=== PATIENT | female | born 1955 | race Caucasian/White ===

== ENCOUNTER 2020-01-17 15:06 | Outpatient (REF) | payer BC, SELFPAY ==
--- NOTE | 2020-01-17 15:13 | XR_ITS ---
EXAMINATION: XR HIP, RIGHT CLINICAL INFORMATION: Right hip pain COMPARISON: None TECHNIQUE: AP pelvis. AP and frog-lateral views of the right hip. FINDINGS: Mild right hip osteoarthritis. Enthesopathy of the greater trochanter. No acute fracture or dislocation. No radiopaque foreign body. IMPRESSION: Mild degenerative findings with no fracture.
== END 2020-01-17 15:07 | disposition home or self-care (01) ==
LOC: HO.HMGCX 15:06
PROVIDERS: PCP Internal Medicine; Visit Provider Internal Medicine
DX: M25.551 Pain in right hip (principal)
CPT/HCPCS: 73502

== ENCOUNTER 2020-06-19 11:18 | Outpatient (REF) | payer BC, SELFPAY ==
[2020-06-20 09:20] LABS: BV Int Neg Control Negative (Negative); BV Int Pos Control Positive (Positive)
== END 2020-06-19 11:19 | disposition home or self-care (01) ==
LOC: HO.LAB 11:18
PROVIDERS: Visit Provider Nurse Practitioner Family
DX: B37.3 Candidiasis of vulva and vagina (principal)
CPT/HCPCS: 87480; 87510; 87660

== ENCOUNTER 2020-09-10 11:37 | Outpatient (REF) | payer MEDICARE, SELFPAY ==
[2020-09-10 14:10] LABS: MANUAL DIFF FLAG NO
[2020-09-10 14:17] LABS: Basophils Percent Auto 0.7 % (0-2); Eosinophils Absolute Auto 0.1 X10*3/uL (0.0-0.4); Eosinophils Percent Auto 1.5 % (0-4); Hemoglobin 14.6 g/dl (12.0-16.0); Imm Gran Abs Auto 0.02 X10*3/uL (0.00-0.03); Imm Gran Pct Auto 0.3 % (0.0-0.4); Lymphocytes Absolute Auto 2.1 X10*3/uL (1.2-4.9); Lymphocytes Percent Auto 36.3 % (20-40); Mean Corpuscular HGB Conc 32.4 g/dl (31.0-35.0); Mean Corpuscular Hemoglobin 29.4 pg (27.0-33.0); Mean Corpuscular Volume 90.7 fL (80-98); Mean Platelet Volume 10.3 fL (9.4-12.3); Monocytes Absolute Auto 0.4 X10*3/uL (0.1-1.2); Monocytes Percent Auto 6.1 % (2-11); Neutrophils Absolute Auto 3.2 X10*3/uL (2.0-8.3); Neutrophils Percent Auto 55.1 % (45-73); Platelet Count 195 X10*3/uL (160-400); Red Blood Count 4.96 X10*6/uL (4.20-5.50); Red Cell Distribution Width 13.2 % (11.0-16.0); White Blood Count 5.9 X10*3/uL (4.8-10.8)
[2020-09-10 14:47] LABS: Alanine Aminotransferase 19 U/L (0-31); Anion Gap 14 (12-20); Aspartate Amino Transferase 17 U/L (5-31); Blood Urea Nitrogen 15 mg/dL (9-16); Calcium 9.6 mg/dL (8.4-10.2); Carbon Dioxide 28 mmol/L (22-29); Chloride 104 mmol/L (96-108); Cholesterol 225 mg/dL; Estimated Glomerular Filt Rate > 60; Glucose Fasting 95 mg/dL (60-99); HDL Cholesterol 68 mg/dL; LDL Cholesterol Calculated 144 mg/dl; Potassium 4.3 mmol/L (3.3-5.1); Sodium 142 mmol/L (135-145); Triglycerides 69 mg/dL
[2020-09-10 15:09] LABS: TSH reflex Free T4 1.12 uIU/mL (0.32-4.0); Vitamin D 25-OH Total 40.7 ng/mL (>30)
== END 2020-09-10 11:38 | disposition home or self-care (01) ==
LOC: HO.HMGCLDS 11:37
PROVIDERS: PCP Internal Medicine; Visit Provider Internal Medicine
DX: Z00.01 Encounter for general adult medical examination with abnormal findings (principal); F32.9 Major depressive disorder, single episode, unspecified; I10 Essential (primary) hypertension; Z83.49 Family history of other endocrine, nutritional and metabolic diseases
CPT/HCPCS: 36415; 80048; 80061; 82306; 84443; 84450; 84460; 85025

== ENCOUNTER 2021-09-03 14:47 | Outpatient (REF) | payer MEDICARE, SELFPAY ==
[2021-09-05 01:21] LABS: Lyme Abs Screen <0.90 index
== END 2021-09-03 14:48 | disposition home or self-care (01) ==
LOC: HO.HMGCLDS 14:47
PROVIDERS: PCP Internal Medicine; Visit Provider Internal Medicine
DX: T14.8XXA Other injury of unspecified body region, initial encounter (principal); W57.XXXA Bitten or stung by nonvenomous insect and other nonvenomous arthropods, initial encounter
CPT/HCPCS: 36415; 86617; 86618

== ENCOUNTER 2021-10-23 09:24 | Outpatient (REF) | payer MEDICARE, SELFPAY ==
[2021-10-23 11:14] LABS: MANUAL DIFF FLAG NO
[2021-10-23 11:24] LABS: Basophils Percent Auto 0.8 % (0-2); Eosinophils Absolute Auto 0.1 X10*3/uL (0.0-0.4); Eosinophils Percent Auto 1.8 % (0-4); Hematocrit 43.2 % (37.0-47.0); Hemoglobin 14.4 g/dl (12.0-16.0); Imm Gran Abs Auto 0.02 X10*3/uL (0.00-0.03); Imm Gran Pct Auto 0.4 % (0.0-0.4); Lymphocytes Absolute Auto 1.5 X10*3/uL (1.2-4.9); Lymphocytes Percent Auto 29.1 % (20-40); Mean Corpuscular HGB Conc 33.3 g/dl (31.0-35.0); Mean Corpuscular Hemoglobin 29.8 pg (27.0-33.0); Mean Corpuscular Volume 89.3 fL (80.0-98.0); Mean Platelet Volume 10.5 fL (9.4-12.3); Monocytes Absolute Auto 0.4 X10*3/uL (0.1-1.2); Monocytes Percent Auto 7.7 % (2-11); Neutrophils Absolute Auto 3.1 x10*3/uL (2.0-8.3); Neutrophils Percent Auto 60.2 % (45-73); Platelet Count 214 X10*3/uL (160-400); Red Blood Count 4.84 X10*6/uL (4.20-5.50); Red Cell Distribution Width 12.9 % (11.0-16.0); White Blood Count 5.1 X10*3/uL (4.8-10.8)
[2021-10-23 11:49] LABS: Alanine Aminotransferase 32 U/L (0-31); Anion Gap 12 (12-20); Aspartate Amino Transferase 24 U/L (5-31); Blood Urea Nitrogen 11 mg/dL (9-16); Calcium 8.9 mg/dL (8.4-10.2); Carbon Dioxide 28 mmol/L (22-29); Chloride 105 mmol/L (96-108); Cholesterol 222 mg/dL; Estimated Glomerular Filt Rate > 60; Glucose Fasting 115 mg/dL (60-99); HDL Cholesterol 57 mg/dL; LDL Cholesterol Calculated 151 mg/dl; Potassium 3.9 mmol/L (3.3-5.1); Sodium 141 mmol/L (135-145); Triglycerides 71 mg/dL
[2021-10-23 12:12] LABS: Vitamin D 25-OH Total 35.1 ng/mL (>30)
== END 2021-10-23 09:25 | disposition home or self-care (01) ==
LOC: HO.HMGCLDS 09:24
PROVIDERS: PCP Internal Medicine; Visit Provider Internal Medicine
DX: Z00.01 Encounter for general adult medical examination with abnormal findings (principal); M19.041 Primary osteoarthritis, right hand; M19.042 Primary osteoarthritis, left hand; F32.9 Major depressive disorder, single episode, unspecified; Z78.0 Asymptomatic menopausal state
CPT/HCPCS: 36415; 80048; 80061; 82306; 84450; 84460; 85025

== ENCOUNTER → 2022-01-09 08:29 | Outpatient (BNVA) | payer MEDICARE, SELFPAY | PROVIDERS: PCP Internal Medicine; Referring Provider Internal Medicine; Visit Provider Internal Medicine Cardiovascular Disease | DX: R06.09 Other forms of dyspnea (principal); Z86.16 Personal history of COVID-19 | CPT/HCPCS: 93005; 99202 ==

== ENCOUNTER → 2022-03-04 13:04 | Outpatient (BNVA) | payer MEDICARE, SELFPAY | PROVIDERS: PCP Internal Medicine; Referring Provider Internal Medicine; Visit Provider Nurse Practitioner Family | DX: R06.09 Other forms of dyspnea (principal); E78.5 Hyperlipidemia, unspecified | CPT/HCPCS: 99212 ==

== ENCOUNTER → 2022-03-10 08:23 | Outpatient (REF) | payer MEDICARE, SELFPAY ==
--- NOTE | 2022-03-10 08:26 | CA_ITS ---
Acquisition Time: 2022-03-10 09:24:28 Total Exercise Time: 00:09:15 Test Indications: Dyspnea Medications: BUPROPION LORAZAPAM OMEPRAZOLE TROSPIUM Protocol: LORETO Max HR: 137 BPM 89% of Pred: 153 BPM Max BP: 164/084 mmHG Max Work Load: 10.5 METS Exercise stress test with exercise 9 min 15 sec of [place] protocol, acheiving up to 88% MPHR, with moderate sob and fatigue with request to stop, no chest discomfort, with isolated PACs, with normotensive response to exercise, without EKG changes meeting criteria for ischemia. In recovery her breathing quickly improved. Test reviewed with Dr Fernandez. Referred By: Mami Smith Overread By: MAMI SMITH
--- NOTE | 2022-03-10 08:26 | CA_ITS ---
Transthoracic Echocardiogram Patient (Last, First, Middle): Jimena Boyd J Gender: Female Date of : 1955 Age: 66 Procedure Date: 03/10/2022 Procedure Type: Transthoracic Echocardiogram Location: OP Height: 165.1 cm Weight: 86.18 kg BSA: 1.94 m2 Heart Rate: bpm BP: 148 / 92 mmHg Brassiere Cup Mold Cutter: FREDDY Referring MD: Mami Smith SKIRT PANEL ASSEMBLEREulalia Symptoms: R06.09 - Other forms of dyspnea Study Quality: Adequate ECG Rhythm: Sinus Conclusions: - The left ventricular systolic function is normal. The calculated ejection fraction is 61% by biplane method. - No obvious valvular pathology seen on this study. Findings Left Ventricle Normal left ventricular cavity size. There is mildly increased left ventricular wall thickness. The left ventricular systolic function is normal. The calculated ejection fraction is 61% by biplane method. There is no evidence of regional wall motion abnormalities. Diastolic function is normal for age. LV peak GLS -17.6%. Right Ventricle Normal right ventricular cavity size and systolic function. Atria Both atria are normal in size. Aortic Valve The aortic valve was not well visualized. There is no aortic valve stenosis. There is trace (trivial) aortic valve regurgitation. Mitral Valve There is mild anterior mitral leaflet thickening. There is trace mitral valve regurgitation. There is no mitral valve stenosis. Pulmonic Valve The pulmonic valve is likely normal. Tricuspid Valve There is trace tricuspid valve regurgitation. There is no evidence of pulmonary hypertension. Great Vessels The aortic arch is normal in size. Venous The inferior vena cava is normal in size and collapses greater than 50% with inspiration. Pericardium/Pleural There is no evidence of pericardial effusion. Prior Study Comparison No prior study available for comparison. Recommendations, Care & Conclusions No obvious valvular pathology seen on this study. Measurements 2D Linear Measurements IVSd: 1.19 0.6-0.9/0.6-1.0 cm LVIDd: 4.22 3.9-5.3/4.2-5.9 cm LVIDd Index: 2.18 2.4-3.2/2.2-3.1 cm/m2 LVIDs: 2.60 2.0-3.6 cm LVPWd: 1.17 0.7-1.1 cm LA Diam: 3.50 2.7-3.8/3.0-4.0 cm LAIDs Index: 1.80 1.5-2.3 cm/m2 LV Mass: 218.13 67-162/88-224 g LV Mass Index: 112.44 43-95/49-115 g/m2 LVOT Diam: 2.20 3.0+(-)1.3 cm 2D Systolic Function EF 4C: 59.20 >55% EF 2C: 65.60 >55% EF BiP: 61.10 >55% Mitral Valve MV Pk E: 0.76 MV PK A: 1.03 MV Decel Time: 248.00 E/A: 0.70 E'Lateral: 7.18 E'Medial: 5.22 E/E' Med: 14.50 E/E' Lat: 10.60 PHT: 73.00 MVA PHT: 3.01 Decel [place]: 3.06 Aortic Valve AoV Pk Andrea: 1.47 AoV Mn Andrea: 0.87 AoV VTI: 0.29 AoV Pk Grad: 9.00 Aov Mn Grad: 4.00 MARLENE Cont.VTI: 3.08 LVOT LVOT Pk Andrea: 1.11 LVOT Mn Andrea: 0.66 LVOT VTI: 0.24 LVOT Pk Grad: 5.00 LVOT Mn Grad: 2.00 LVOT Diam: 2.20 LVOT Area: 3.80 Diastolic Function MV Pk E: 0.76 MV Pk A: 1.03 E/A: 0.70 E'Medial: 5.22 E/E' Med: 14.50 E' Laterial: 7.18 E/E' Lat: 10.60 Right Ventricle TAPSE (mm): 24.80 TVS' Andrea: 11.70 Tricuspid Valve TR Pk Andrea: 2.12 TR Pk Grad: 18.00 RA Press: 3.00 RVSP: 21.00 Great Vessels Aorta Sinus of Valsalva: 3.24 2.0-3.[address] [place]: 2.74 1.7-3.4 cm Ao Asc: 3.20 2.1-3.4 cm Ao Arch: 3.10 Updated in Other Vendor System with Status of Final Rene Mchugh MD electronically signed on 03/10/2022 12:35:30 PM with status of Final
== END ==
LOC: HO.CARD 08:23
PROVIDERS: PCP Internal Medicine; Visit Provider Nurse Practitioner Family
DX: R06.09 Other forms of dyspnea (principal)
CPT/HCPCS: 93017; 93306; 93356

== ENCOUNTER 2023-03-08 13:55 | Outpatient (AMB) | payer MEDICARE, SELFPAY ==
[2023-03-08 14:46] VITALS: BP 162/92; PULSE 77; TEMP 36.4; O2SAT 98; BMI 33.6
--- NOTE | 2023-03-08 14:46 | MHC.OFFWIV ---
Intake Vital Signs 03/08/23 14:46 Height 5 ft 5 in Weight 202 lb BMI 33.6 BP 162/92 H Blood Pressure Location Rt brachial Position Sitting Pulse 77 Pulse Source Pulse Oximeter Temp 97.5 F Temp Source Temporal Artery Scan Pulse Oximetry (%) 98 Oxygen Delivery Method Room Air Intake Visit Reasons: EP ?Sinus Infection (masked) Intake Note: pt is here for c/o possible sinus infection Patient Tobacco Use Status: Former Tobacco user Allergies codeine [CODEINE] Allergy (Severe, Verified 03/08/23 14:46) DIFFICULTY BREATHING Do you need a note to return to daycare/school/sports/work: Yes HPI HPI Comments History of Present Illness Details The patient presents to urgent care for evaluation of URI type symptoms times 10-11 days. She reports facial pain and pressure with congestion in her right ear and in front of below the ear. Patient denies chest pain or shortness of breath. She does admit to having a cough as well. No fever. She has nasal drainage that is yellowish in color. Patient has been using [id number] remedies such as cold and flu preparations as well as Neti pot. She reports she has relief of the symptoms. [facility] Medical History Depression LIM (dyspnea on exertion) Dyslipidemia Hip pain, right Lumbago Osteoarthritis of fingers of both hands Plantar wart POP-Q stage 2 cystocele Tick bite of back Urge and stress incontinence Surgical History H/O colonoscopy H/O: Family History Father No problems noted. Mother Substance use disorder Mental health disorder Housing: House Alcohol intake: current Patient Tobacco Use Status: Former Tobacco user Years Smoked: 10 yrs e-Cigarette/Vaping Use: Never Used Second Hand Smoke Exposure: No service: No Current occupational status: retired Current occupational exposures/hazards: No Cognitive needs: No Hearing needs: No Vision needs: Yes (reading glasses) Review of Systems ENT Denies dizziness, Reports nasal congestion and Reports sore throat Card Denies rapid heart rate, Denies dyspnea and Denies dyspnea on exertion Resp Denies dyspnea and Denies dyspnea on exertion GI Denies dyspepsia and Denies heartburn Musc Denies arthralgias and Denies muscle cramps Neuro Denies dizziness, Denies focal weakness and Denies Other visual disturbances Physical Exam Vital Signs: Last Vital Signs Temp 97.5 F 03/08/23 14:46 Pulse 77 03/08/23 14:46 BP 162/92 H 03/08/23 14:46 Pulse Ox 98 03/08/23 14:46 Oxygen Delivery Method Room Air 03/08/23 14:46 BMI result Body Mass Index 33.6 Const General: healthy appearing and no acute distress HEENT Other: No significant facial tenderness or pressure over the eyebrows or maxillary sinuses Mouth: Normal oral and palatal mucosa present Resp Effort & Inspection: normal respiratory effort and able to speak in complete sentences Auscultation: clear to auscultation bilaterally Cardio Rate: regular rate Rhythm: regular rhythm Assessment & Plan Assessment & Plan (1) URI (upper respiratory infection): Code(s): J06.9 - Acute upper respiratory infection, unspecified Plan The patient presents to urgent care for evaluation of URI type symptoms lasting about 10-11 days. This is likely still viral. Discussed patient option of treating with antibiotic versus watch and wait. At this time given that symptoms may still very well be viral she would like to give it another few days to see if they improve over time without antibiotics. She will contact the office back in 2-3 days to speak with someone with Dr. Gonzalez his office for possible prescription of antibiotic. She may benefit from a course of azithromycin at that time. Coding Level of Care Code Est Pt Level 3 (59495) Diagnoses URI (upper respiratory infection) J06.9
== END 2023-03-08 15:08 | disposition home or self-care (01) ==
PROVIDERS: PCP Internal Medicine; Visit Provider Emergency Medicine
DX: J06.9 Acute upper respiratory infection, unspecified (principal)
CPT/HCPCS: 99213

== ENCOUNTER 2023-04-16 08:15 | Outpatient (REF) | payer MEDICARE, SELFPAY ==
[2023-04-16 12:29] LABS: Anion Gap 12 (12-20); Blood Urea Nitrogen 17 mg/dL (9-16); Calcium 9.1 mg/dL (8.4-10.2); Carbon Dioxide 27 mmol/L (22-29); Chloride 106 mmol/L (96-108); Cholesterol 234 mg/dL (<200); Estimated Glomerular Filt Rate > 60; Glucose Fasting 112 mg/dL (60-99); HDL Cholesterol 60 mg/dL (>40); LDL Cholesterol Calculated 153 mg/dL (<100); Potassium 4.1 mmol/L (3.3-5.1); Sodium 141 mmol/L (135-145); Triglycerides 105 mg/dL (<150)
[2023-04-16 12:32] LABS: Vitamin D 25-OH Total 45.5 ng/mL (>30)
== END 2023-04-16 08:16 | disposition home or self-care (01) ==
LOC: HO.HMGCLDS 08:15
PROVIDERS: PCP Internal Medicine; Visit Provider Internal Medicine
DX: E78.5 Hyperlipidemia, unspecified (principal); F32.9 Major depressive disorder, single episode, unspecified; M19.041 Primary osteoarthritis, right hand; M19.042 Primary osteoarthritis, left hand; R73.01 Impaired fasting glucose; E89.40 Asymptomatic postprocedural ovarian failure
CPT/HCPCS: 36415; 80048; 80061; 82306; 83036

== ENCOUNTER 2023-04-20 08:26 | Outpatient (AMB) | payer MEDICARE, SELFPAY ==
[2023-04-20 08:32] VITALS: BP 130/80; PULSE 82; O2SAT 97; BMI 33.5
--- NOTE | 2023-04-20 08:32 | A.OFFPC_ITS ---
Vital Signs 04/20/23 08:32 Height 5 ft 5 in Weight 201 lb 2 oz BMI 33.5 BP 130/80 Blood Pressure Location Rt brachial Position Sitting Pulse 82 Pulse Source Pulse Oximeter Pulse Oximetry (%) 97 Oxygen Delivery Method Room Air Intake Visit Reasons: Annual PE Intake Note: Pt is here for her Annual PE Allergies codeine [CODEINE] Allergy (Severe, Verified 04/20/23 09:04) DIFFICULTY BREATHING Medication List - Last Reconciled 04/20/23 by Stacie Gonzalez MD Bacillus coagulans (Digestive Advantage Probiotics-Prebiotic) cells PO cholecalciferol (vitamin D3) 25 mcg PO DAILY diclofenac sodium 1% 2 grams topical QID PRN estradiol 0.01%(0.1mg/gram) vaginal loratadine 10 mg PO DAILY lorazepam 0.5 mg PO DAILY PRN [id number] 1 tab PO DAILY omeprazole 20 mg PO DAILY tretinoin 0.025% appl topical vitamin B complex 1 tab PO DAILY Tobacco use date assessed: 04/20/23 Fall risk assessment: 2 + Falls in past year Last assessed Fall Risk: 04/20/23 Dental Screening Dental Screen Date: 04/20/23 Did you have a dental visit in the last 12 months?: Yes Did you have a dental problem in the last 6 months where you did not have access to dental care?: No Was dental information given to patient?: Patient has dentist HPI Annual PE HPI Details 67-year-old lady here today for her phys ical exam. She has impaired fasting glucose, history of bladder prolapse withurge and stress incontinence, vaginal atrophy, dyslipidemia, and osteoarthritis in fingers of both hands. She is up-to-date with her screening mammogram, due again next month, and had a normal bone density scan done in 2021. [facility] Medical History Impaired fasting glucose POP-Q stage 2 cystocele Dyslipidemia Lumbago Urge and stress incontinence LIM (dyspnea on exertion) Tick bite of back Osteoarthritis of fingers of both hands Depression Hip pain, right Plantar wart Surgical History H/O colonoscopy H/O: Family History Father No problems noted. Mother Substance use disorder Mental health disorder Social History Housing: House Alcohol intake: current Patient Tobacco Use Status: Former Tobacco user Years Smoked: 10 yrs e-Cigarette/Vaping Use: Never Used Second Hand Smoke Exposure: No service: No Current occupational status: retired Current occupational exposures/hazards: No Cognitive needs: No Hearing needs: No Vision needs: Yes (reading glasses) Questionnaire PHQ-9 Over the last 2 weeks, how often have you been bothered by any of the following problems? 1. Little interest or pleasure in doing things: several days 2. Feeling down, depressed, or hopeless: several days 3. Trouble falling or staying asleep, or sleeping too much: several days 4. Feeling tired or having little energy: several days 5. Poor appetite or overeating: nearly every day 6. Feeling bad about yourself - or that you are a failure or have let yourself or your family down: several days 7. Trouble concentrating on things, such as reading the newspaper or watching television: nearly every day 8. Moving or speaking so slowly that other people could have noticed. Or the opposite - being so fidgety or restless that you have been moving around a lot more than usual: not at all 9. Thoughts that you would be better off or of hurting yourself in some way: not at all Total score: 11 Depression Screening Interpretation: Positive Depression Screening Follow-up: Existing condition and In treatment Depression Screening Done: Yes 21999 - PHQ-9 Billing: Yes Source: Developed by Drs. Joshua Tovar, Demi Tariq, Bryant Ruvalcaba and colleagues, with an educational monico from [employer]. Thrive Questionnaire Date Thrive assessed: 04/20/23 I am a: Patient What is your living situation today?: I have a steady place to live Within the past 12 months, did the food you bought not last and you didn't have the money to get more?: Never true Within the past 12 months, did you worry whether your food would run out before you got money to buy more?: Never true Do you have trouble paying for medicines?: No Do you have trouble getting transportation to medical appointments?: No Do you have trouble paying your heating and electricity bill?: No Do you have trouble taking care of your child, family member or friend?: No Do you have trouble with day-to-day activities such as bathing, preparing meals, shopping, managing finances, etc.?: No Are you currently unemployed and looking for a job?: No Are you interested in more education?: No AUDIT C Alcohol Use Questionnaire (AUDIT-C) 1. How often do you have a drink containing alcohol?: 4 or more times a week 2. How many drinks containing alcohol do you have on a typical day when you are drinking?: 1 or 2 3. How often do you have six or more drinks on one occasion?: Never Total Score: 4 OPAL-7 AMB Questionnaire OPAL-7 Date OPAL - 7 assessed: 04/20/23 Feeling nervous, anxious, or on edge: 1 = Several days Not being able to stop or control worryin = Several days Worrying too much about different things: 1 = Several days Trouble relaxin = Several days Being so restless that it is hard to sit still: 1 = Several days Becoming easily annoyed or irritable: 1 = Several days Feeling afraid as if something awful might happen: 1 = Several days Total OPAL-7 score (0-4 normal; 5-9 mild; 10-14 moderate; 15-21 severe): 7 Source: Developed by Drs. Joshua Tovar, Demi Tariq, Bryant Ruvalcaba and colleagues, with an educational monico from [employer]. OPAL-7 Assessment Billing OPAL-7 Assessment Tool: OPAL-7 Assessment 86526 Review of Systems Const Denies body aches, Denies fatigue, Denies fever(s), Denies headache(s) and Denies weakness Eyes Denies change in vision, Denies eye discharge and Denies itchy eyes ENT Denies dizziness, Denies headache(s), Denies nasal congestion, Denies nasal discharge and Denies sore throat Card Denies chest pain, Denies lightheadedness and Denies palpitations Resp Denies chest congestion, Denies cough and Denies wheezing GI Denies abdominal pain, Denies change in bowel habits and Denies heartburn Denies hematuria and Denies dysuria Musc Reports no additional complaints Skin/Breast Denies breast pain, Denies breast mass, Denies lesions and Denies rash Neuro Denies dizziness, Denies headache(s) and Denies weakness Psych Reports as per HPI Endo Denies fatigue, Denies polydipsia, Denies polyuria and Denies palpitations Ashu/Lymph Denies easy bruising Aller/Immun Denies itchy eyes, Denies seasonal rhinorrhea and Denies wheezing Physical exam (Primary Care) Vital Signs: Last Vital Signs Pulse 82 04/20/23 08:32 BP 130/80 04/20/23 08:32 Pulse Ox 97 04/20/23 08:32 Oxygen Delivery Method Room Air 04/20/23 08:32 BMI result Body Mass Index 33.5 Tobacco/Smoking Status: Tobacco use Status Tobacco use date assessed 04/20/23 04/20/23 08:43 Patient Tobacco Use Status Former Tobacco user 04/20/23 08:32 e-Cigarette/Vaping Use Never Used 04/20/23 08:32 PHQ-9: PHQ-9 Score PHQ-9: Total score 11 04/20/23 09:53 Depression Screening Interpretation: Positive Depression Screening Follow-up: Existing condition and In treatment Thrive Assessment: Date of Thrive Assessment Date Thrive assessed 04/20/23 04/20/23 08:48 Const General: comfortable, no acute distress and alert Orientation/consciousness: patient oriented x3 Limitations: no limitations HENMT Ears: external ears normal, TM's normal bilaterally and EAC's normal General nose exam: Normal external nose present and No nasal discharge present Mouth: Normal oral and palatal mucosa present, oropharynx normal and moist mucous membranes Eyes General: appearance normal, both eyes and all related structures Neck Neck: Yes full ROM, Yes no lymphadenopathy and Yes supple Resp Effort & Inspection: normal respiratory effort and able to speak in complete sentences Auscultation: clear to auscultation bilaterally Cardio Rate: regular rate Rhythm: regular rhythm Heart sounds: S1 normal heart sound present and S2 normal heart sound present GI Palpation (GI): Soft to palpation, nontender and no masses Auscultation: normal bowel sounds Back/Spine/Pelvis Back: No back tenderness Skin General skin exam: no rashes or lesions noted Neuro General: patient oriented x3, gait normal, tone normal, moves all extremities, Normal light touch and pain sensation and no focal motor deficits Cranial nerves: Yes CN's II-XII intact bilaterally Cognition (Neuro): normal cognition Extrem General: Yes full ROM, Yes no joint enlargement, Yes no clubbing, cyanosis or edema and Yes no calf tenderness Psych Appearance: grossly normal and well kempt Mental Status: mental status grossly normal Speech and movement: Normal speech and movement present Affect: normal affect Attitude: cooperative Thought process: Normal thought process present Thought content: Normal thought content present Results Reviewed Results Reviewed: Laboratory Tests 04/16/23 08:20 Estimat Average Glucose 120 Hemoglobin A1c % 5.8 ENTERED: 04/16/[address]: ORDERED: Met Prof Fast, Lipid Panel, Vitamin D 25-OH Test Result Flag Reference Site Sodium 141 135-145 mmol/L Potassium 4.1 3.3-5.1 mmol/L CL 106 96-108 mmol/L CO2 27 22-29 mmol/L Gap 12 12-20 BUN 17 H 9-16 mg/dL Creat 0.77 0.5-1.4 mg/dL EGFR > 60 NOTE: For -Citizen Of [place] individuals, multiply the result by 1.210. Chronic Kidney Disease: Estimated GFR < 60 mL/min/1.73m2 Severe Kidney Disease: Estimated GFR < 15 mL/min/1.73m2 FBS 112 H 60-99 mg/dL A fasting glucose from 100-125 mg/dl is considered impaired (pre-diabetes). CA 9.1 8.4-10.2 mg/dL Triglyceride 105 <150 mg/dL Desirable Triglyceride: less than 150 mg/dL Borderline High Triglyceride 150-199 mg/dL High Triglyceride: 200-499 mg/dL Very High Triglyceride: greater than or equal to 5OO mg/dL Cholesterol 234 H <200 mg/dL Desirable Cholesterol: less than 200 mg/dL Borderline High Cholesterol: 200-239 mg/dL High Cholesterol: greater than 239 mg/dL LDL Calculated 153 H <100 mg/dL Desirable LDL: less than 100 mg/dL Near Optimal/Above Optimal LDL: 110-129 mg/dL Borderline High LDL: 130-159 mg/dL High LDL: 160-189 mg/dL Very High LDL: greater than or equal to 190 mg/dL HDL 60 >40 mg/dL Desirable HDL: greater than 40 mg/dL Note: This HDL assay may give artificially low results in patients with liver disease. Vit D 25-OH Tot 45.5 >30 ng/mL Health Based Reference Values* < 20 ng/mL Deficient 20-30 ng/mL Insufficient > 30 ng/mL Sufficient Assessment and Plan Assessment & Plan (1) Annual visit for general adult medical examination with abnormal findings: Code(s): Z00.01 - Encounter for general adult medical examination with abnormal findings Plan: Reviewed recent fasting lab results with patient.. Continue with regular dental visit every 6 months and regular eye exams, at least every 2 years. Take adequate calcium in diet and vitamin-D 3 at 2000 IU per cap once a day, in addition to weight-bearing exercises to help maintain good muscle tone and weight control. Instructed to do self-breast exam, and continue with yearly mammogram, up-to-date with bone density scan, last done 2021 with normal findings. She is up-to-date with her screening colonoscopy [place] [address] Olguin, repeat again in 2026. Up-to-date with all her vaccinations however she has not yet had her shingles vaccine which is recommended (2) Impaired fasting glucose: Code(s): R73.01 - Impaired fasting glucose Plan: Your fasting blood sugars elevated were above 100 mg/dL latest hemoglobin A1c is at 5.8%. Impaired glucose metabolism O2 at risk for developing diabetes mellitus type 2, as well as heart attack and stroke later on. Lifestyle changes at just weight loss, healthy eating habits, and regular exercise are important, and can prevent the progression to diabetes (3) Depression: Code(s): F32.9 - Major depressive disorder, single episode, unspecified Qualifiers: Depression Type: major depressive disorder Major depression recurrence: recurrent Active/Remission status: currently active Plan: Will start on bupropion at 150 mg/dL, to take it in the morning. Declined referral for counseling. Will see her back for follow-up in a month. (4) POP-Q stage 2 cystocele: Comment: followed byb urology . for pessary fitting Code(s): N81.10 - Cystocele, unspecified Plan: Currently followed by Urology (5) Dyslipidemia: Code(s): E78.5 - Hyperlipidemia, unspecified Plan: Reviewed recent fasting lipid profile with patient with elevated triglycerides and LDL cholesterol. Reason for adherence to low-cholesterol diet and regular exercise, at least 30 minutes 3 to 4 times a week. Advised patient to make healthy food choices, eat more fruits, vegetables, whole grains, wild caught fish and low-fat dairy. Limit amount of meat and fried or fatty food products, as well as processed foods and fast foods. (6) Osteoarthritis of fingers of both hands: Code(s): M19.041 - Primary osteoarthritis, right hand; M19.042 - Primary osteoarthritis, left hand Plan: Massage diclofenac sodium to affected joints up to 4 times a day as needed. Advised to continue staying active, have regular exercise Medications: New estradiol 0.01%(0.1mg/gram) vaginal bupropion HCl 150 mg PO QAM 30 tabs 1RF Refilled omeprazole 20 mg PO DAILY 90 caps 1RF Coding Level of Care Code Est Pt Prev Care >65y(68523) Diagnoses Annual visit for general adult medical examination with abnormal findings Z00.01 Impaired fasting glucose R73.01 Depression F32.9 Depression Type: major depressive disorder Major depression recurrence: recurrent Active/Remission status: currently active POP-Q stage 2 cystocele N81.10 Dyslipidemia E78.5 Osteoarthritis of fingers of both hands M19.041; M19.042 Additional Codes OPAL-7 Assessment Billing - OPAL-7 Assessment Tool: OPAL-7 Assessment [id number] ([id number])
== END 2023-04-20 09:54 | disposition home or self-care (01) ==
PROVIDERS: PCP Internal Medicine; Visit Provider Internal Medicine
DX: Z00.00 Encounter for general adult medical examination without abnormal findings (principal); R73.01 Impaired fasting glucose; F32.9 Major depressive disorder, single episode, unspecified; N81.10 Cystocele, unspecified; E78.5 Hyperlipidemia, unspecified; M19.041 Primary osteoarthritis, right hand; M19.042 Primary osteoarthritis, left hand
CPT/HCPCS: 96127; 99397

== ENCOUNTER 2023-05-18 14:04 | Outpatient (AMB) | payer MEDICARE, SELFPAY ==
--- NOTE | 2023-05-18 14:01 | MHC.PC.OV ---
Vital Signs 05/18/23 14:01 Height 5 ft 5 in Intake Visit Reasons: 4 week follow up Intake Note: Pt is having a telehealth visit for her 4 weeks f/u Allergies codeine [CODEINE] Allergy (Severe, Verified 05/19/23 05:38) DIFFICULTY BREATHING Medication List - Last Reconciled 05/19/23 by Stacie Gonzalez MD Bacillus coagulans (Digestive Advantage Probiotics-Prebiotic) cells PO bupropion HCl 150 mg PO QAM cholecalciferol (vitamin D3) 25 mcg PO DAILY diclofenac sodium 1% 2 grams topical QID PRN estradiol 0.01%(0.1mg/gram) vaginal loratadine 10 mg PO DAILY lorazepam 0.5 mg PO DAILY PRN magnesium oxide 400 mg PO DAILY [id number]-zmfziwnr-khqtrb 1 tab PO DAILY omeprazole 20 mg PO DAILY tretinoin 0.025% appl topical turmeric root extract 500 mg PO DAILY vitamin B complex 1 tab PO DAILY Tobacco use date assessed: 05/18/23 Fall risk assessment: No Falls in past year Last assessed Fall Risk: 05/18/23 Dental Screening Dental Screen Date: 05/18/23 Did you have a dental visit in the last 12 months?: Yes Did you have a dental problem in the last 6 months where you did not have access to dental care?: No Was dental information given to patient?: Patient has dentist HPI 4 week follow up HPI Details 68-year-old lady here today for follow-up. She was started on bupropion 150 mg extended release taken once a day in the morning, for treatment of depression and to help with weight loss, 4 weeks ago. She states that it has been helping with controlling her depression, but she has started noticing presence of tinnitus on and off again since she started taking the medication. She states that it has been tolerable, not bothering her during the day but is present more during the night. She would have music playing in the background, and this would usually suppress it. Otherwise has not had any adverse effects with taking the medication. She also has noticed that it does suppress her appetite, has lost 2 lb since she started taking it, but would like to lose more. Has been exercising regularly. [facility] Medical History (Updated 05/19/23 @ 05:45 by Stacie Gonzalez MD) Tinnitus Impaired fasting glucose POP-Q stage 2 cystocele Dyslipidemia Lumbago Urge and stress incontinence LIM (dyspnea on exertion) Tick bite of back Osteoarthritis of fingers of both hands Depression Hip pain, right Plantar wart Surgical History H/O colonoscopy H/O: Family History Father No problems noted. Mother Substance use disorder Mental health disorder Social History Housing: House Alcohol intake: current Patient Tobacco Use Status: Former Tobacco user Years Smoked: 10 yrs e-Cigarette/Vaping Use: Never Used Second Hand Smoke Exposure: No service: No Current occupational status: retired Current occupational exposures/hazards: No Cognitive needs: No Hearing needs: No Vision needs: Yes (reading glasses) Questionnaire Thrive Questionnaire Date Thrive assessed: 04/20/23 AUDIT C Alcohol Use Questionnaire (AUDIT-C) 1. How often do you have a drink containing alcohol?: 4 or more times a week 2. How many drinks containing alcohol do you have on a typical day when you are drinking?: 1 or 2 3. How often do you have six or more drinks on one occasion?: Never Total Score: 4 Score Reviewed/Action Taken: Yes OPAL-7 AMB Questionnaire OPAL-7 Date OPAL - 7 assessed: 04/20/23 Source: Developed by Drs. Joshua Tovar, Demi Tariq, Bryant Ruvalcaba and colleagues, with an educational monico from [employer]. Review of Systems Const Denies fatigue and Denies headache(s) ENT Denies dizziness, Denies headache(s), Denies nasal congestion and Denies nasal discharge Card Denies chest pain, Denies lightheadedness and Denies palpitations Resp Denies chest congestion, Denies cough and Denies wheezing GI Denies abdominal pain, Denies change in bowel habits and Denies heartburn Musc Reports no additional complaints Neuro Denies dizziness and Denies headache(s) Psych Reports as per HPI Endo Denies fatigue, Denies polydipsia, Denies polyuria and Denies palpitations Aller/Immun Denies seasonal rhinorrhea and Denies wheezing Physical exam (Primary Care) Tobacco/Smoking Status: Tobacco use Status Tobacco use date assessed 05/18/23 05/18/23 14:03 Patient Tobacco Use Status Former Tobacco user 05/18/23 14:03 e-Cigarette/Vaping Use Never Used 05/18/23 14:03 Thrive Assessment: Date of Thrive Assessment Date Thrive assessed 04/20/23 05/18/23 14:03 Telehealth Telehealth Location of provider rendering services: practice address Location of patient: address on file Patient Identification confirmed using: Name, : Yes Telehealth method: video Patient verbally consented to treatment: Yes Patient verbally consented to billing insurance company: Yes Patient informed of any privacy concerns related to visit: Yes Minutes spent on Phone/Video with Pt.: 15 Assessment and Plan Assessment & Plan (1) Depression: Code(s): F32.9 - Major depressive disorder, single episode, unspecified Qualifiers: Active/Remission status: in partial remission Depression Type: major depressive disorder Major depression recurrence: recurrent Qualified Code(s): F33.41 - Major depressive disorder, recurrent, in partial remission Plan: Continue with bupropion HCL 150 mg tab taken once daily in a.m.. Takes lorazepam as needed (2) Tinnitus: Code(s): H93.19 - Tinnitus, unspecified ear Plan: Intermittent, patient states it is tolerable, usually would have music playing in the background which helps mask it Coding Level of Care Code Tele Est Pt Level 3 (88847) Diagnoses Recurrent major depressive disorder, in partial remission F33.41 Active/Remission status: in partial remission Depression Type: major depressive disorder Major depression recurrence: recurrent Tinnitus H93.19
== END 2023-05-18 15:37 | disposition home or self-care (01) ==
LOC: HO.HMGC 14:04
PROVIDERS: PCP Internal Medicine; Visit Provider Internal Medicine
DX: F33.41 Major depressive disorder, recurrent, in partial remission (principal); H93.13 Tinnitus, bilateral
CPT/HCPCS: 99213

== ENCOUNTER 2023-08-30 13:12 | Outpatient (AMB) | payer MEDICARE, SELFPAY ==
--- NOTE | 2023-08-30 13:16 | A.OFFPC_ITS ---
Vital Signs 08/30/23 13:19 Height 5 ft 5 in Weight 184 lb 2 oz BMI 30.6 BP 138/86 Blood Pressure Location Lt brachial Position Sitting Pulse 81 Pulse Source Pulse Oximeter Pulse Oximetry (%) 97 Oxygen Delivery Method Room Air Intake Visit Reasons: Follow up depression and weight Intake Note: Pt is here today to follow up on depression and weight. Allergies codeine [CODEINE] Allergy (Severe, Verified 08/30/23 13:33) DIFFICULTY BREATHING Medication List - Last Reconciled 08/30/23 by Stacie Gonzalez MD Bacillus coagulans (Digestive Advantage Probiotics-Prebiotic) cells PO bupropion HCl XL 150 mg PO QAM cholecalciferol (vitamin D3) 25 mcg PO DAILY diclofenac sodium 1% 2 grams topical QID PRN estradiol 0.01%(0.1mg/gram) vaginal loratadine 10 mg PO DAILY lorazepam 0.5 mg PO DAILY PRN magnesium oxide 400 mg PO DAILY npwvzfdfujvd-zajcycrx-kkjqgn 1 tab PO DAILY omeprazole 20 mg PO DAILY tretinoin 0.025% appl topical turmeric root extract 500 mg PO DAILY vitamin B complex 1 tab PO DAILY Tobacco use date assessed: 05/18/23 Fall risk assessment: No Falls in past year Last assessed Fall Risk: 08/30/23 Dental Screening Dental Screen Date: 08/30/23 Did you have a dental visit in the last 12 months?: Yes Did you have a dental problem in the last 6 months where you did not have access to dental care?: No Was dental information given to patient?: Patient has dentist HPI Follow up depression and weight HPI Details 68-year-old lady with history of hyperli pidemia and impaired fasting glucose, here today for follow-up on her depression, which is currently stable and controlled on current dose of bupropion HCL 150 mg taken once a day in a.m., and has lorazepam to take as needed for acute anxiety attacks. [facility] Medical History (Updated 09/06/23 @ 18:13 by Stacie Gonzalez MD) Tinnitus Impaired fasting glucose POP-Q stage 2 cystocele Dyslipidemia Lumbago Tick bite of back Osteoarthritis of fingers of both hands Depression Plantar wart Surgical History H/O colonoscopy H/O: Family History Father No problems noted. Mother Substance use disorder Mental health disorder Social History Housing: House Alcohol intake: current Patient Tobacco Use Status: Former Tobacco user Years Smoked: 10 yrs e-Cigarette/Vaping Use: Never Used Second Hand Smoke Exposure: No service: No Current occupational status: retired Current occupational exposures/hazards: No Cognitive needs: No Hearing needs: No Vision needs: Yes (reading glasses) Questionnaire PHQ-9 Over the last 2 weeks, how often have you been bothered by any of the following problems? 1. Little interest or pleasure in doing things: several days 2. Feeling down, depressed, or hopeless: not at all 3. Trouble falling or staying asleep, or sleeping too much: not at all 4. Feeling tired or having little energy: not at all 5. Poor appetite or overeating: more than half the days 6. Feeling bad about yourself - or that you are a failure or have let yourself or your family down: not at all 7. Trouble concentrating on things, such as reading the newspaper or watching television: several days 8. Moving or speaking so slowly that other people could have noticed. Or the opposite - being so fidgety or restless that you have been moving around a lot more than usual: not at all 9. Thoughts that you would be better off or of hurting yourself in some way: not at all Total score: 4 Depression Screening Interpretation: Positive Depression Screening Follow-up: Existing condition, In treatment and Community Mental Health Worker F/U Depression Screening Done: Yes 98673 - PHQ-9 Billing: Yes Source: Developed by Drs. Joshua Tovar, Demi Tariq, Bryant Ruvalcaba and colleagues, with an educational monico from [email or web address]. Thrive Questionnaire Date Thrive assessed: 08/30/23 I am a: Patient What is your living situation today?: I have a steady place to live Within the past 12 months, did the food you bought not last and you didn't have the money to get more?: Never true Within the past 12 months, did you worry whether your food would run out before you got money to buy more?: Never true Do you have trouble paying for medicines?: No Do you have trouble getting transportation to medical appointments?: No Do you have trouble paying your heating and electricity bill?: No Do you have trouble taking care of your child, family member or friend?: No Do you have trouble with day-to-day activities such as bathing, preparing meals, shopping, managing finances, etc.?: No Are you currently unemployed and looking for a job?: No Are you interested in more education?: No THRIVE Score: 0 AUDIT C Alcohol Use Questionnaire (AUDIT-C) 1. How often do you have a drink containing alcohol?: 4 or more times a week 2. How many drinks containing alcohol do you have on a typical day when you are drinking?: 1 or 2 3. How often do you have six or more drinks on one occasion?: Never Total Score: 4 Score Reviewed/Action Taken: Yes OPAL-7 AMB Questionnaire OPAL-7 Date OPAL - 7 assessed: 08/30/23 Feeling nervous, anxious, or on edge: 1 = Several days Not being able to stop or control worryin = Several days Worrying too much about different things: 0 = Not at all Trouble relaxin = Not at all Being so restless that it is hard to sit still: 0 = Not at all Becoming easily annoyed or irritable: 0 = Not at all Feeling afraid as if something awful might happen: 1 = Several days Total OPAL-7 score (0-4 normal; 5-9 mild; 10-14 moderate; 15-21 severe): 3 Source: Developed by Drs. Joshua Tovar, Demi Tariq, Bryant Ruvalcaba and colleagues, with an educational monico from [email or web address]. OPAL-7 Assessment Billing OPAL-7 Assessment Tool: OPAL-7 Assessment 00624 Review of Systems Const Denies fatigue and Denies headache(s) ENT Denies dizziness, Denies headache(s), Denies nasal congestion and Denies nasal discharge Card Denies chest pain, Denies lightheadedness and Denies palpitations Resp Denies chest congestion, Denies cough and Denies wheezing GI Denies abdominal pain, Denies change in bowel habits and Denies heartburn Musc Reports no additional complaints Neuro Denies dizziness and Denies headache(s) Psych Reports as per HPI Endo Denies fatigue, Denies polydipsia, Denies polyuria and Denies palpitations Aller/Immun Denies seasonal rhinorrhea and Denies wheezing Physical exam (Primary Care) Vital Signs: Last Vital Signs Pulse 81 08/30/23 13:19 BP 138/86 08/30/23 13:19 Pulse Ox 97 08/30/23 13:19 Oxygen Delivery Method Room Air 08/30/23 13:19 BMI result Body Mass Index 30.6 Tobacco/Smoking Status: Tobacco use Status Tobacco use date assessed 05/18/23 08/30/23 13:16 Patient Tobacco Use Status Former Tobacco user 08/30/23 13:16 e-Cigarette/Vaping Use Never Used 08/30/23 13:16 PHQ-9: PHQ-9 Score PHQ-9: Total score 4 08/30/23 15:22 Depression Screening Interpretation: Positive Depression Screening Follow-up: Existing condition, In treatment and Community Mental Health Worker F/U Thrive Assessment: Date of Thrive Assessment Date Thrive assessed 08/30/23 08/30/23 15:22 Const General: comfortable, no acute distress and alert Orientation/consciousness: patient oriented x3 Limitations: no limitations HENMT Ears: external ears normal, TM's normal bilaterally and EAC's normal General nose exam: Normal external nose present and No nasal discharge present Mouth: Normal oral and palatal mucosa present, oropharynx normal and moist mucous membranes Eyes General: appearance normal, both eyes and all related structures Neck Neck: Yes full ROM, Yes no lymphadenopathy and Yes supple Resp Effort & Inspection: normal respiratory effort and able to speak in complete sentences Auscultation: clear to auscultation bilaterally Cardio Rate: regular rate Rhythm: regular rhythm Heart sounds: S1 normal heart sound present and S2 normal heart sound present GI Palpation (GI): Soft to palpation, nontender and no masses Auscultation: normal bowel sounds Neuro General: patient oriented x3, gait normal, tone normal, moves all extremities, Normal light touch and pain sensation and no focal motor deficits Cranial nerves: Yes CN's II-XII intact bilaterally Cognition (Neuro): normal cognition Extrem General: Yes full ROM, Yes no joint enlargement, Yes no clubbing, cyanosis or edema and Yes no calf tenderness Psych Appearance: grossly normal and well kempt Mental Status: mental status grossly normal Speech and movement: Normal speech and movement present Affect: normal affect Attitude: cooperative Thought process: Normal thought process present Assessment and Plan Assessment & Plan (1) Depression: Code(s): F32.9 - Major depressive disorder, single episode, unspecified Qualifiers: Active/Remission status: in partial remission Depression Type: major depressive disorder Major depression recurrence: recurrent Qualified Code(s): F33.41 - Major depressive disorder, recurrent, in partial remission Plan: Stable and controlled on current dose of bupropion XL 150 mg daily taken in the morning and has lorazepam taken only as needed for acute anxiety attacks. (2) Dyslipidemia: Code(s): E78.5 - Hyperlipidemia, unspecified Plan: Fasting lipid panel ordered, reinforced importance of following a low- cholesterol diet and getting regular exercise. (3) Impaired fasting glucose: Code(s): R73.01 - Impaired fasting glucose Plan: Fasting blood sugar level ordered. Your fasting blood sugar in the past elevated above 100 mg/dL. Impaired glucose metabolism O2 increases the risk for developing diabetes mellitus type 2, as well as heart attack and stroke later on. Lifestyle changes at just weight loss, healthy eating habits, and regular exercise are important, and can prevent the progression to diabetes Orders: Orders Vitamin D 25-OH Total 08/31/23 E78.5 - Hyperlipidemia, unspecified, F33.41 - Major depressive disorder, recurrent, in partial remission, R73.01 - Impaired fasting glucose, Z78.0 - Asymptomatic menopausal state Vitamin B12 and Folate 08/31/23 E78.5 - Hyperlipidemia, unspecified, F33.41 - Major depressive disorder, recurrent, in partial remission, R73.01 - Impaired fasting glucose, Z78.0 - Asymptomatic menopausal state Aspartate Amino Transferase 08/31/23 E78.5 - Hyperlipidemia, unspecified, F33.41 - Major depressive disorder, recurrent, in partial remission, R73.01 - Impaired fasting glucose, Z78.0 - Asymptomatic menopausal state Glucose Fasting 08/31/23 E78.5 - Hyperlipidemia, unspecified, F33.41 - Major depressive disorder, recurrent, in partial remission, R73.01 - Impaired fasting glucose, Z78.0 - Asymptomatic menopausal state Lipid Panel 08/31/23 E78.5 - Hyperlipidemia, unspecified, F33.41 - Major depressive disorder, recurrent, in partial remission, R73.01 - Impaired fasting glucose, Z78.0 - Asymptomatic menopausal state Alanine Aminotransferase 08/31/23 E78.5 - Hyperlipidemia, unspecified, F33.41 - Major depressive disorder, recurrent, in partial remission, R73.01 - Impaired fasting glucose, Z78.0 - Asymptomatic menopausal state Coding Level of Care Code Est Pt Level 4 (19874) Diagnoses Recurrent major depressive disorder, in partial remission F33.41 Active/Remission status: in partial remission Depression Type: major depressive disorder Major depression recurrence: recurrent Dyslipidemia E78.5 Impaired fasting glucose R73.01 Additional Codes OPAL-7 Assessment Billing - OPAL-7 Assessment Tool: OPAL-7 Assessment [id number] ([id number])
[2023-08-30 13:19] VITALS: BP 138/86; PULSE 81; O2SAT 97; BMI 30.6
== END 2023-08-30 15:10 | disposition home or self-care (01) ==
PROVIDERS: PCP Internal Medicine; Visit Provider Internal Medicine
DX: E78.5 Hyperlipidemia, unspecified (principal); F33.41 Major depressive disorder, recurrent, in partial remission; R73.01 Impaired fasting glucose
CPT/HCPCS: 99214

== ENCOUNTER 2023-08-31 08:01 | Outpatient (REF) | payer MEDICARE, SELFPAY ==
[2023-08-31 10:39] LABS: Alanine Aminotransferase 24 U/L (0-31); Aspartate Amino Transferase 19 U/L (5-31); Cholesterol 186 mg/dL (<200); Glucose Fasting 113 mg/dL (60-99); HDL Cholesterol 57 mg/dL (>40); LDL Cholesterol Calculated 116 mg/dL (<100); Triglycerides 65 mg/dL (<150)
[2023-08-31 10:53] LABS: Vitamin D 25-OH Total 52.9 ng/mL (>30)
[2023-08-31 11:34] LABS: Folate 14.3 ng/mL (> or = 4.0); Vitamin B12 404 pg/mL (200-900)
== END 2023-08-31 08:02 | disposition home or self-care (01) ==
LOC: HO.HMGCLDS 08:01
PROVIDERS: PCP Internal Medicine; Visit Provider Internal Medicine
DX: R73.01 Impaired fasting glucose (principal); E78.5 Hyperlipidemia, unspecified; F33.41 Major depressive disorder, recurrent, in partial remission; Z78.0 Asymptomatic menopausal state
CPT/HCPCS: 36415; 80061; 82306; 82607; 82746; 82947; 84450; 84460

== ENCOUNTER 2023-09-27 12:11 | Outpatient (AMB) | payer MEDICARE, SELFPAY ==
[2023-09-27 12:22] VITALS: BP 136/88; PULSE 81; TEMP 36.6; O2SAT 95; BMI 31.6
--- NOTE | 2023-09-27 12:22 | AM.OFFWIN_ITS ---
Intake Vital Signs 09/27/23 12:22 Height 5 ft 5 in Weight 190 lb BMI 31.6 BP 136/88 Blood Pressure Location Lt brachial Position Sitting Pulse 81 Pulse Source Pulse Oximeter Temp 97.9 F Temp Source Temporal Artery Scan Pulse Oximetry (%) 95 Oxygen Delivery Method Room Air Intake Visit Reasons: EP Rt Knee pain Intake Note: pt is here today for rt knee pain started 2 weeks ago Patient Tobacco Use Status: Former Tobacco user Allergies codeine [CODEINE] Allergy (Severe, Verified 09/27/23 12:35) DIFFICULTY BREATHING Do you need a note to return to daycare/school/sports/work: No HPI HPI Comments History of Present Illness Details Patient presents to the walk-in today for right knee pain x2 weeks Denies injury, trauma, fall Pain is worse with walking Has been icing and elevating without improvement. Wearing compression support but pain persists PFS Medical History (Updated 09/27/23 @ 13:01 by Bridget Miller ULTRASOUND TECHNOLOGIST SONOGRAPHER, ELECTRONIC WARFARE SPECIALIST) Tinnitus Impaired fasting glucose POP-Q stage 2 cystocele Dyslipidemia Lumbago Tick bite of back Osteoarthritis of fingers of both hands Depression Plantar wart Surgical History H/O colonoscopy H/O: Family History Father No problems noted. Mother Substance use disorder Mental health disorder Social History Housing: House Alcohol intake: current Patient Tobacco Use Status: Former Tobacco user Years Smoked: 10 yrs e-Cigarette/Vaping Use: Never Used Second Hand Smoke Exposure: No service: No Current occupational status: retired Current occupational exposures/hazards: No Cognitive needs: No Hearing needs: No Vision needs: Yes (reading glasses) Review of Systems Const All systems reviewed & are unremarkable except as noted in HPI and below Physical Exam Vital Signs: Last Vital Signs Temp 97.9 F 09/27/23 12:22 Pulse 81 09/27/23 12:22 BP 136/88 09/27/23 12:22 Pulse Ox 95 09/27/23 12:22 Oxygen Delivery Method Room Air 09/27/23 12:22 BMI result Body Mass Index 31.6 General: awake, alert, oriented. Answers questions appropriately. Fully engaged in examination. Skin: warm, dry, intact HEENT: Normocephalic. Hearing intact. Cardiac: External chest normal in appearance. Respiratory: No cough, audible wheezing or stridor. Abdomen: without gross distension. MS: Right knee: Tenderness long lateral and medial joint line. Positive crepitus. Decreased range of motion. Neurological: Oriented to person, place, time and situation. Thought process intact. No gait abnormalities appreciated. Psychiatric: Appropriate mood and affect. Good judgment and insight. Results Reviewed Results Reviewed: X-ray right knee ordered and independently reviewed: No fracture dislocation Assessment & Plan Assessment & Plan (1) Knee pain, right: Code(s): M25.561 - Pain in right knee Plan Right knee X-ray ordered and independently reviewed: No fracture or dislocation Referral placed for Orthopedics Knee brace applied, patient advised on use Continue with ice, rest elevate until evaluated by Orthopedics Follow up with PCP or return here for any new or worsening symptoms Orders: Referrals Orthopedics Referral M25.561 - Pain in right knee Coding Level of Care Code Est Pt Level 4 (55980) Diagnoses Knee pain, right M25.561
== END 2023-09-27 14:55 | disposition home or self-care (01) ==
PROVIDERS: PCP Internal Medicine; Visit Provider Registered Nurse Emergency
DX: M25.561 Pain in right knee (principal)
CPT/HCPCS: 99213

== ENCOUNTER 2023-09-27 13:05 | Outpatient (REF) | payer MEDICARE, SELFPAY ==
--- NOTE | ~2023-09-27 | XR_ITS ---
EXAMINATION: XR KNEE, RIGHT CLINICAL INFORMATION: Pain of the knee COMPARISON: None available. TECHNIQUE: Four views of the right knee. FINDINGS: Bones have normal alignment and joint spaces are maintained. No fracture, subluxation or joint effusion. Minimal marginal osteophyte formation of the patella and at the medial tibiofemoral compartment. XR/XR knee RT 4V IMPRESSION: * No acute osseous injury at the right knee. No fracture or joint effusion. * Minimal osteoarthrosis of patellofemoral and medial tibiofemoral compartments.
== END 2023-09-27 13:06 | disposition home or self-care (01) ==
LOC: HO.HMGCX 13:05
PROVIDERS: PCP Internal Medicine; Visit Provider Registered Nurse Emergency
DX: M25.561 Pain in right knee (principal)
CPT/HCPCS: 73564

== ENCOUNTER 2023-10-19 11:18 | Outpatient (REF) | payer MEDICARE, SELFPAY ==
--- NOTE | ~2023-10-19 | US_ITS ---
EXAMINATION: US VENOUS ULTRASOUND WITH DOPPLER LOWER EXTREMITY, RIGHT CLINICAL INFORMATION: Right lower leg pain COMPARISON: None available. TECHNIQUE: Ultrasound of the deep veins is performed from the hip to the calf with compression sonography and color and pulse Doppler assessment. Spectral analysis with color-flow imaging is performed. FINDINGS: There is normal venous compression and respiratory variation and augmented flow. The visualized common femoral vein, superficial femoral vein, profunda femoral vein, popliteal vein, and the trifurcation region shows no evidence of deep venous thrombosis. 4.4 x 1.2 x 3.4 cm avascular cystic structure identified in the popliteal fossa. If the patient's symptoms persist, followup ultrasound in 5 days 7 days might be of value to exclude proximal propagation from a non-visualized calf vein. US/US venous duplex LE RT IMPRESSION: No DVT demonstrated in the right lower extremity. 4.4 cm right Sanches's cyst.
== END 2023-10-19 11:19 | disposition home or self-care (01) ==
LOC: HO.HMGCX 11:18
PROVIDERS: PCP Internal Medicine; Visit Provider Internal Medicine
DX: M79.661 Pain in right lower leg (principal)
CPT/HCPCS: 93971

== ENCOUNTER 2023-10-26 12:44 | Outpatient (AMB) | payer MEDICARE, SELFPAY ==
--- NOTE | 2023-10-26 12:47 | A.OFFVIS_ITS ---
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 The patient describes her pain as sharp in nature. Most of the pain is along the medial aspect of her knee. She has been limping for the last few months because of her right knee pain and left foot plantar fasciitis. She has had cortisone injections in the past which gave her minimal relief. She has also tried Tylenol and ibuprofen which gave her only mild relief. She has been walking with a cane because of her pain. She states that her right knee will give out several times per day. She has not been able to drive because of her pain. Allergies codeine [CODEINE] Allergy (Severe, Verified 09/27/23 12:35) DIFFICULTY BREATHING Medication List - Last Reconciled 10/26/23 by Octaviano Lopez MD Bacillus coagulans (Digestive Advantage Probiotics-Prebiotic) cells PO bupropion HCl XL 150 mg PO QAM cholecalciferol (vitamin D3) 25 mcg PO DAILY diclofenac sodium 1% 2 grams topical QID PRN estradiol 0.01%(0.1mg/gram) vaginal loratadine 10 mg PO DAILY lorazepam 0.5 mg PO DAILY PRN magnesium oxide 400 mg PO DAILY ijcsobehouhn-xmciqczb-qhpzko 1 tab PO DAILY omeprazole 20 mg PO DAILY tretinoin 0.025% appl topical turmeric root extract 500 mg PO DAILY vitamin B complex 1 tab PO DAILY PFSH Medical History Tinnitus Impaired fasting glucose POP-Q stage 2 cystocele Dyslipidemia Lumbago Tick bite of back Osteoarthritis of fingers of both hands Depression Plantar wart Surgical History H/O colonoscopy H/O: Family History Father No problems noted. Mother Substance use disorder Mental health disorder Social History Housing: House Alcohol intake: current Patient Tobacco Use Status: Former Tobacco user Years Smoked: 10 yrs e-Cigarette/Vaping Use: Never Used Second Hand Smoke Exposure: No service: No Current occupational status: retired Current occupational exposures/hazards: No Cognitive needs: No Hearing needs: No Vision needs: Yes (reading glasses) Physical Exam Vital Signs: BMI result Body Mass Index 31.6 Const Other: Well-nourished well-developed very friendly female awake alert and oriented x3 in no acute distress Extrem Other: Bilateral lower extremity examination shows good capillary refill, no skin lesions noted, normal sensation light touch Right knee examination shows a minimal effusion, minimal crepitus with range of motion, tenderness along her medial joint line, positive Tamir's test, no instability Results Reviewed Results Reviewed: X-rays of the patient's right knee show mild joint space narrowing, no acute bony abnormalities Assessment & Plan Assessment & Plan (1) Knee pain, right: Code(s): M25.561 - Pain in right knee Category: Medical Plan Ms. Boyd presents with right knee pain and mechanical symptoms most likely due to a tear of her medial meniscus. Thus, I will send the patient for an MRI of her right knee for further evaluation. I will see the patient back once the MRI is completed to discuss the findings and treatment options. Feel free to call me at any time should questions regarding her orthopedic management arise. I spent 22 minutes in reviewing the patient's records and imaging studies, seeing the patient and documenting in the medical record. Orders: Orders MR knee RT wo con Today M25.561 - Pain in right knee Coding Level of Care Code New Pt Level 3 (80920) Diagnoses Knee pain, right M25.561
[2023-10-26 12:48] VITALS: BMI 31.6
== END 2023-10-26 13:06 | disposition home or self-care (01) ==
PROVIDERS: PCP Internal Medicine; Visit Provider Orthopaedic Surgery
DX: M25.561 Pain in right knee (principal)
CPT/HCPCS: 99203

== ENCOUNTER → 2023-10-26 12:44 | Outpatient (BNVA) | payer MEDICARE, SELFPAY | PROVIDERS: PCP Internal Medicine; Visit Provider Orthopaedic Surgery | DX: M25.561 Pain in right knee (principal) | CPT/HCPCS: 99202 ==

== ENCOUNTER 2023-11-23 08:53 | Outpatient (AMB) | payer MEDICARE, SELFPAY ==
--- NOTE | 2023-11-23 09:00 | MHC.OFFVIS ---
Vital Signs 11/23/23 09:03 Height 5 ft 5 in Weight 190 lb BMI 31.6 Intake Visit Reasons: OV- Right knee MRI review Intake Note: Jimena is a 68 year old female who presents with complaints of progressively worsening right knee pain and giving way. The patient describes her pain as sharp in nature. Most of the pain is along the medial aspect of her knee. She has been limping for the last few months because of her right knee pain and left foot plantar fasciitis. She has had cortisone injections in the past which gave her minimal relief. She has also tried Tylenol and ibuprofen which gave her only mild relief. She has been walking with a cane because of her pain. She states that her right knee will give out several times per day. She has not been able to drive because of her pain. Allergies codeine [CODEINE] Allergy (Severe, Verified 11/23/23 09:03) DIFFICULTY BREATHING Medication List - Last Reconciled 11/23/23 by Octaviano Lopez MD Bacillus coagulans (Digestive Advantage Probiotics-Prebiotic) cells PO bupropion HCl XL 150 mg PO QAM cholecalciferol (vitamin D3) 25 mcg PO DAILY diclofenac sodium 1% 2 grams topical QID PRN estradiol 0.01%(0.1mg/gram) vaginal loratadine 10 mg PO DAILY lorazepam 0.5 mg PO DAILY PRN magnesium oxide 400 mg PO DAILY zcmbvuikxhve-elmrjqno-wlnpbr 1 tab PO DAILY omeprazole 20 mg PO DAILY tretinoin 0.025% appl topical turmeric root extract 500 mg PO DAILY vitamin B complex 1 tab PO DAILY PFSH Medical History Tinnitus Impaired fasting glucose POP-Q stage 2 cystocele Dyslipidemia Lumbago Tick bite of back Osteoarthritis of fingers of both hands Depression Plantar wart Surgical History H/O colonoscopy H/O: Family History Father No problems noted. Mother Substance use disorder Mental health disorder Social History Housing: House Alcohol intake: current Patient Tobacco Use Status: Former Tobacco user Years Smoked: 10 yrs e-Cigarette/Vaping Use: Never Used Second Hand Smoke Exposure: No service: No Current occupational status: retired Current occupational exposures/hazards: No Cognitive needs: No Hearing needs: No Vision needs: Yes (reading glasses) Physical Exam Vital Signs: BMI result Body Mass Index 31.6 Const Other: Well-nourished well-developed very friendly female awake alert and oriented x3 in no acute distress Extrem Other: Bilateral lower extremity examination shows good capillary refill, no skin lesions noted, normal sensation light touch Right knee examination shows a minimal effusion, minimal crepitus with range of motion, tenderness along her medial and lateral joint lines, positive Tamir's test, no instability Results Reviewed Results Reviewed: Standing full weight-bearing x-rays of the patient's right knee show mild joint space narrowing, no acute bony abnormalities MRI of the patient's right knee shows mild diffuse degenerative changes, tearing of the medial meniscus and possible tearing of the lateral meniscus Assessment & Plan Assessment & Plan (1) Knee pain, right: Code(s): M25.561 - Pain in right knee Category: Medical Plan Ms. Boyd presents with progressively worsening right knee pain and mechanical symptoms due to tearing of her medial meniscus and possible tearing of her lateral meniscus. I had a lengthy discussion with the patient regarding the treatment options. At this point she has failed continued non operative treatments. The risks and benefits of right knee arthroscopic surgery were discussed at length with the patient. The patient wishes to proceed with surgery. She will be scheduled for next available date. Surgery will most likely involve right knee diagnostic arthroscopy with partial medial meniscectomy and possible partial lateral meniscectomy. The patient will follow-up as instructed. Feel free to call me at any time should questions regarding her orthopedic management arise. I spent 22 minutes in reviewing the patient's records and imaging studies, seeing the patient and documenting in the medical record. Coding Level of Care Code Est Pt Level 3 (02682) Diagnoses Knee pain, right M25.561
[2023-11-23 09:03] VITALS: BMI 31.6
== END 2023-11-23 09:40 | disposition home or self-care (01) ==
PROVIDERS: PCP Internal Medicine; Visit Provider Orthopaedic Surgery
DX: M25.561 Pain in right knee (principal)
CPT/HCPCS: 99214

== ENCOUNTER → 2023-11-23 08:53 | Outpatient (BNVA) | payer MEDICARE, SELFPAY | PROVIDERS: PCP Internal Medicine; Visit Provider Orthopaedic Surgery | DX: M25.561 Pain in right knee (principal) | CPT/HCPCS: 99212 ==

== ENCOUNTER 2023-11-29 07:57 | Day surgery (SDC) | payer MEDICARE, SELFPAY ==
[2023-11-29] VITALS (13 sets, daily range): BP systolic 158–179; BP diastolic 82–94; PULSE 64–76; RESP 12–17; TEMP 36.3–36.4; O2SAT 93–99; BMI 31.6
[2023-11-29] MEDS: Lactated Ringers 1,000 ML 100 ML IVCONT (08:44)
--- NOTE | 2023-11-29 09:20 | HO.ANESPROP2 ---
Documented by User: Lara Norman NP 11/25/23 09:55 HPI - Anesthesia Eval Consult details Narrative: 68yo F for Right Knee Arthroscopy PMFSH Active Problems Active Problems: All Active Problems Knee pain, right (Acute) Tinnitus (Acute) Impaired fasting glucose (Acute) POP-Q stage 2 cystocele (Acute) Dyslipidemia (Acute) Osteoarthritis of fingers of both hands (Acute) Depression (Acute) Vaginal atrophy (Acute) Past Medical History Medical History Tinnitus Impaired fasting glucose POP-Q stage 2 cystocele Dyslipidemia Lumbago Tick bite of back Osteoarthritis of fingers of both hands Depression Plantar wart Family History Family History Father No problems noted. Mother Substance use disorder Mental health disorder Surgical History Surgical History H/O colonoscopy H/O: Social History Social History Housing: House Alcohol intake: current Patient Tobacco Use Status: Former Tobacco user Years Smoked: 10 yrs e-Cigarette/Vaping Use: Never Used Second Hand Smoke Exposure: No Use of substances other than those prescribed or required for medical reasons: No Are you DNR?: No Advance Directives: No Advance Directives Information Provided: Yes Advance Directives on File: No service: No Current occupational status: retired Current occupational exposures/hazards: No Cognitive needs: No Hearing needs: No Vision needs: Yes (reading glasses) Meds Allergies Allergy/AdvReac Type Severity Reaction Status Date / Time codeine [CODEINE] Allergy Severe DIFFICULTY Verified 11/23/23 09:03 BREATHING Home Medications ?Medication ?Instructions ?Recorded ?Confirmed ?Last Taken ?Type Bacillus coagulans 800 million cell PO 01/17/20 11/23/23 Unknown History cell tablet (Digestive Advantage Probiotics-Prebiotic) cholecalciferol (vitamin D3) 25 25 mcg PO DAILY 01/17/20 11/29/23 Unknown History mcg (1,000 unit) capsule wppnsfeluajy-sahtfhln-rjqnyx tablet 1 tab PO DAILY 01/17/20 11/29/23 Unknown History tretinoin 0.025 % topical cream applic topical 01/17/20 11/23/23 Unknown History vitamin B complex 1 tab PO DAILY 01/17/20 11/29/23 Unknown History estradiol 0.01% (0.1 mg/gram) vaginal 04/20/23 11/23/23 Unknown History vaginal cream loratadine 10 mg tablet 10 mg PO DAILY 04/20/23 11/29/23 11/29/23 History magnesium oxide 400 mg (241.3 mg 400 mg PO DAILY 05/18/23 11/29/23 Unknown History magnesium) tablet turmeric root extract 500 mg 500 mg PO DAILY 05/18/23 11/29/23 Unknown History capsule Exam Pertinent Lab Results Pertinent Lab Results: Laboratory Tests 04/16/23 08:20 Sodium 141 Potassium 4.1 Chloride 106 Carbon Dioxide 27 BUN 17 H Creatinine 0.77 Narrative Narrative: ECHO 2021 Conclusions: - The left ventricular systolic function is normal. The calculated ejection fraction is 61% by biplane method. - No obvious valvular pathology seen on this study Exercise Stress 2021 Protocol: MARTY Max HR: 137 BPM 89% of Pred: 153 BPM Max BP: 164/084 mmHG Max Work Load: 10.5 METS Exercise stress test with exercise 9 min 15 sec of Marty protocol, acheiving up to 88% MPHR, with moderate sob and fatigue with request to stop, no chest discomfort, with isolated PACs, with normotensive response to exercise, without EKG changes meeting criteria for ischemia. In recovery her breathing quickly improved. Test reviewed with Dr Fernandez. Assessment and Plan Assessment Anesthesia Assessment: Chart Reviewed Documented by User: Anne Brennan DO 11/29/23 09:36 PMFSH Past Medical History Medical History Tinnitus Impaired fasting glucose POP-Q stage 2 cystocele Dyslipidemia Lumbago Tick bite of back Osteoarthritis of fingers of both hands Depression Plantar wart Family History Family History Father No problems noted. Mother Substance use disorder Mental health disorder Family history of problems with anesthesia: No Surgical History Surgical History H/O colonoscopy H/O: History of Problems with Anesthesia: No Social History Social History Housing: House Alcohol intake: current Patient Tobacco Use Status: Former Tobacco user Years Smoked: 10 yrs e-Cigarette/Vaping Use: Never Used Second Hand Smoke Exposure: No Use of substances other than those prescribed or required for medical reasons: No Are you DNR?: No Advance Directives: No Advance Directives Information Provided: Yes Advance Directives on File: No service: No Current occupational status: retired Current occupational exposures/hazards: No Cognitive needs: No Hearing needs: No Vision needs: Yes (reading glasses) Meds Allergies Allergy/AdvReac Type Severity Reaction Status Date / Time codeine [CODEINE] Allergy Severe DIFFICULTY Verified 11/23/23 09:03 BREATHING Home Medications ?Medication ?Instructions ?Recorded ?Confirmed ?Last Taken ?Type Bacillus coagulans 800 million cell PO 01/17/20 11/23/23 Unknown History cell tablet (Digestive Advantage Probiotics-Prebiotic) cholecalciferol (vitamin D3) 25 25 mcg PO DAILY 01/17/20 11/29/23 Unknown History mcg (1,000 unit) capsule gysinicqlpju-lmpatuia-hookjw tablet 1 tab PO DAILY 01/17/20 11/29/23 Unknown History tretinoin 0.025 % topical cream applic topical 01/17/20 11/23/23 Unknown History vitamin B complex 1 tab PO DAILY 01/17/20 11/29/23 Unknown History estradiol 0.01% (0.1 mg/gram) vaginal 04/20/23 11/23/23 Unknown History vaginal cream loratadine 10 mg tablet 10 mg PO DAILY 04/20/23 11/29/23 11/29/23 History magnesium oxide 400 mg (241.3 mg 400 mg PO DAILY 05/18/23 11/29/23 Unknown History magnesium) tablet turmeric root extract 500 mg 500 mg PO DAILY 05/18/23 11/29/23 Unknown History capsule Exam Exam Date and Time: November 29, 2023917 Height,Weight and Vital Signs: Height 5 ft 5 in Weight 86.183 kg Vital Signs Temperature 97.3 F 11/29/23 08:43 Pulse Rate 73 11/29/23 08:43 Respiratory Rate 16 11/29/23 08:43 Blood Pressure 164/90 H 11/29/23 08:43 Pulse Oximetry 96 11/29/23 08:43 Oxygen Delivery Method Room Air 11/29/23 08:43 Temperature 97.3 F 11/29/23 08:43 Pulse Rate 73 11/29/23 08:43 Respiratory Rate 16 11/29/23 08:43 Blood Pressure 164/90 H 11/29/23 08:43 Pulse Oximetry 96 11/29/23 08:43 Oxygen Delivery Method Room Air 11/29/23 08:43 Airway Mallampati Class: II TM Dist: >3cm Neck ROM: Full Loose/Missing/Broken Teeth: No (Patient denies any loose or broken teeth. Has a permanent bridge.) Heart: S1S2 Lungs: CTAB Assessment and Plan Assessment Anesthesia Assessment: Anesthesia Plan Discussed and Chart Reviewed Final Anesthetic Review Family History of Problems with Anesthesia: No History of Problems with Anesthesia: No NPO: Yes ASA Class: II Final Preanesthetic Review: No Changes in Pt Med Stat, Meds/Allgs Chart Reviewed, Consent Obtained/Reviewed and Anes Risks/Benef Reviewed Patient Risk: Low Procedure Risk: Low Anesthetic Plan Anesthetic Plan: GA and Agree w/ Assess. and Plan Disposition: Standard PACU
--- NOTE | 2023-11-29 10:52 | PM.OP ---
Brief Operative Note Date of Service: 11/29/23 Pre-op diagnosis: Right knee medial meniscus tear, right knee lateral meniscus tear, right knee degenerative joint disease Post-op diagnosis: same Procedure: Right knee diagnostic arthroscopy with right knee arthroscopic partial medial and lateral meniscectomies, right knee arthroscopic chondroplasty of the undersurface of the patella as well as the medial femoral condyle Implants: none Surgeon: Octaviano Lopez MD Anesthesia: GLMA Was an Cable Supervisor used for this Procedure?: No Estimated blood loss (mL): 10 Pathology: none sent Condition: stable Disposition: PACU
--- NOTE | 2023-11-29 10:52 | W.PM.OPN ---
Operative Note Operative Note Date of Service: 11/29/23 Narrative: After the patient was identified Jimena Boyd and her right knee was initialed by myself they were brought to the operating room where general anesthesia was induced by the anesthesiologist in routine fashion. The patient was given 2 g of IV Ancef for infection prophylaxis. A formal time-out was completed. The patient's right lower extremity was prepped and draped in sterile fashion. Marcaine with epinephrine was injected into the planned incision sites as well as their right knee joint. A # 11 scalpel blade was used to make an anterolateral portal 1 cm proximal to the joint line and 1 cm lateral to the patellar tendon. Blunt trocar technique was used into the suprapatellar pouch with the knee in extension. Diagnostic arthroscopy showed multiple bands of thickened plica which would be excised at the end of the procedure. There were no loose bodies or abnormalities found in either the medial or lateral gutters. There were diffuse grades 1 and 2 degenerative changes of the undersurface of the patella as well as grade 1 degenerative changes of the trochlear groove. The patient's knee was flexed to 45 degrees and a valgus force was placed upon it. The medial compartment was entered. An anteromedial portal was made 1 cm proximal to the joint line and 1 cm medial to the patellar tendon. Probing of the medial meniscus showed a radial tear of the posterior horn. A partial medial meniscectomy was performed using the arthroscopic shaver. Following the partial meniscectomy the remainder of the meniscus tissue was stable. There were diffuse grades 2 and 3 degenerative changes of the medial femoral condyle as well as diffuse grade 1 degenerative changes of the medial tibial plateau. The articular surface of the medial femoral condyle was made smooth using the arthroscopic shaver. The articular surface of the medial tibial plateau was already smooth so no chondroplasty was indicated. The patient's knee was then placed into a neutral position. There was no injury to the anterior cruciate ligament. The patient's knee was then placed into the figure of 4 position and the lateral compartment was entered. There were diffuse grade 2 degenerative changes of the lateral femoral condyle and lateral tibial plateau. The articular surfaces were already smooth so no chondroplasty was indicated. There was a radial tear of the anterior horn of the lateral meniscus. A partial lateral meniscectomy was performed using the arthroscopic shaver. Following the partial meniscectomy the remainder of the meniscus tissue was stable. The patient's knee was once again brought into extension and the suprapatellar pouch was entered. The arthroscopic shaver and the ArthroCare Wand were used to excise the thickened bands of plica. The undersurface of the patella was then made smooth using the arthroscopic shaver. The articular surface of the trochlear groove was already smooth so no chondroplasty was indicated. The knee joint was irrigated and then drained. All arthroscopic instruments were removed. The 2 portals were closed with 3-0 nylon interrupted suture. The knee joint was injected with Marcaine. Dry sterile dressing and Alex bandages were placed over the patient's knee. The patient was awoken and extubated in the operating room. They were transferred to the recovery room in stable condition.
[2023-11-29] MEDS: cefTRIAXone sodium 1 GM in 0.9 % Sodium Chloride 50 ML IV (11:06)
== END 2023-11-29 14:04 | disposition home or self-care (01) ==
PROVIDERS: PCP Internal Medicine; Visit Provider Orthopaedic Surgery
PROC: (CPT 29870; principal; 2023-11-29 10:30)
DX: S83.241A Other tear of medial meniscus, current injury, right knee, initial encounter (principal); S83.281A Other tear of lateral meniscus, current injury, right knee, initial encounter; M17.11 Unilateral primary osteoarthritis, right knee; X58.XXXA Exposure to other specified factors, initial encounter; Y93.9 Activity, unspecified; Y92.9 Unspecified place or not applicable; Y99.9 Unspecified external cause status
CPT/HCPCS: 29880; J0131; J0171; J0690; J0696; J1100; J1885; J2250; J2405; J2704; J2795

== ENCOUNTER → 2023-11-29 07:57 | Outpatient (BNV) | payer MEDICARE, SELFPAY | PROVIDERS: PCP Internal Medicine; Visit Provider Orthopaedic Surgery | DX: S83.241A Other tear of medial meniscus, current injury, right knee, initial encounter (principal); S83.281A Other tear of lateral meniscus, current injury, right knee, initial encounter | CPT/HCPCS: 29880 ==

== ENCOUNTER 2023-12-14 11:37 | Outpatient (AMB) | payer MEDICARE, SELFPAY ==
--- NOTE | 2023-12-14 11:46 | MHC.OFFVIS ---
Intake Visit Reasons: PO - RT Knee 11/29/23 DR Intake Note: Jimena a 68 year old female who presents today for a post operative visit s/p right knee on 11/29/23 Sutures removed and ster-strips applied. Patient reports she is doing well. She denies any fevers or chills. She questions when she can return to bowling and riding her recumbent bike. Allergies codeine [CODEINE] Allergy (Severe, Verified 11/23/23 09:03) DIFFICULTY BREATHING Medication List - Last Reconciled 12/14/23 by Octaviano Lopez MD Bacillus coagulans (Digestive Advantage Probiotics-Prebiotic) cells PO bupropion HCl XL 150 mg PO QAM cholecalciferol (vitamin D3) 25 mcg PO DAILY diclofenac sodium 1% 2 grams topical QID PRN estradiol 0.01%(0.1mg/gram) vaginal hydromorphone (Dilaudid) 2 mg PO Q6H PRN 1 week loratadine 10 mg PO DAILY lorazepam 0.5 mg PO DAILY PRN magnesium oxide 400 mg PO DAILY wxnucoiomufe-mysvublf-qarimq 1 tab PO DAILY omeprazole 20 mg PO DAILY tretinoin 0.025% appl topical turmeric root extract 500 mg PO DAILY vitamin B complex 1 tab PO DAILY PFSH Medical History Tinnitus Impaired fasting glucose POP-Q stage 2 cystocele Dyslipidemia Lumbago Tick bite of back Osteoarthritis of fingers of both hands Depression Plantar wart Surgical History H/O colonoscopy H/O: Family History Father No problems noted. Mother Substance use disorder Mental health disorder Social History Housing: House Alcohol intake: current Patient Tobacco Use Status: Former Tobacco user Years Smoked: 10 yrs e-Cigarette/Vaping Use: Never Used Second Hand Smoke Exposure: No service: No Current occupational status: retired Current occupational exposures/hazards: No Cognitive needs: No Hearing needs: No Vision needs: Yes (reading glasses) Physical Exam Extrem Other: Right knee examination shows that the surgical incisions are well healed, no erythema, minimal discomfort with range of motion, no instability Assessment & Plan Assessment & Plan (1) Knee pain, right: Code(s): M25.561 - Pain in right knee Category: Medical Plan Ms. Boyd is doing well after undergoing right knee arthroscopic surgery on 11/29/2023. Her sutures were removed and Steri-Strips placed over her incisions. She will gradually progress to activities as tolerated. She will contact me prior to her follow-up appointment in 6 weeks should any questions or concerns arise. Feel free to call me at any time should questions regarding her orthopedic management arise. Coding Level of Care Code Global (43070) Diagnoses Knee pain, right M25.561
== END 2023-12-14 12:06 | disposition home or self-care (01) ==
PROVIDERS: PCP Internal Medicine; Visit Provider Orthopaedic Surgery
DX: M25.561 Pain in right knee (principal)
CPT/HCPCS: 99024

== ENCOUNTER → 2023-12-14 11:37 | Outpatient (BNVA) | payer MEDICARE, SELFPAY | PROVIDERS: PCP Internal Medicine; Visit Provider Orthopaedic Surgery | DX: M25.561 Pain in right knee (principal) | CPT/HCPCS: 99212 ==

== ENCOUNTER 2024-02-01 10:19 | Outpatient (AMB) | payer BC, SELFPAY ==
--- NOTE | 2024-02-01 10:21 | MHC.OFFVIS ---
Intake Visit Reasons: PO - RT Knee 11/29/23 DR Intake Note: Jimena is a 68 year old female who presents with complaints of mild to moderate discomfort in her right knee after undergoing right knee arthroscopic surgery on 11/29/2023. She denies any fevers or chills. She states that she still notices discomfort when going up and down stairs. She continues to ride her recumbent bicycle for exercise. Allergies codeine [CODEINE] Allergy (Severe, Verified 02/01/24 10:22) DIFFICULTY BREATHING Medication List - Last Reconciled 02/01/24 by Octaviano Lopez MD Bacillus coagulans (Digestive Advantage Probiotics-Prebiotic) cells PO bupropion HCl XL 150 mg PO QAM cholecalciferol (vitamin D3) 25 mcg PO DAILY diclofenac sodium 1% 2 grams topical QID PRN estradiol 0.01%(0.1mg/gram) vaginal hydromorphone (Dilaudid) 2 mg PO Q6H PRN 1 week loratadine 10 mg PO DAILY lorazepam 0.5 mg PO DAILY PRN magnesium oxide 400 mg PO DAILY multivitamin-calcium carb-iron tabs PO jbybvcqmpbos-lfssihbh-dfnttc 1 tab PO DAILY omeprazole 20 mg PO DAILY tretinoin 0.025% appl topical turmeric root extract 500 mg PO DAILY vitamin B complex 1 tab PO DAILY PFSH Medical History Tinnitus Impaired fasting glucose POP-Q stage 2 cystocele Dyslipidemia Lumbago Tick bite of back Osteoarthritis of fingers of both hands Depression Plantar wart Surgical History H/O colonoscopy H/O: Family History Father No problems noted. Mother Substance use disorder Mental health disorder Social History Housing: House Alcohol intake: current Patient Tobacco Use Status: Former Tobacco user Years Smoked: 10 yrs e-Cigarette/Vaping Use: Never Used Second Hand Smoke Exposure: No service: No Current occupational status: retired Current occupational exposures/hazards: No Cognitive needs: No Hearing needs: No Vision needs: Yes (reading glasses) Physical Exam Extrem Other: Right knee examination shows a minimal effusion, minimal crepitus with range of motion, no instability Assessment & Plan Assessment & Plan (1) Knee pain, right: Code(s): M25.561 - Pain in right knee Category: Medical Plan Jimena continues to do fairly well after undergoing right knee arthroscopic surgery on 11/29/2023. I discussed with the patient the fact that her symptoms should continue to improve over the next few months. She will continue with her activity modifications. She will continue riding her recumbent bicycle for exercise. She will contact me prior to her follow-up appointment in 3 months should any questions or concerns arise. Feel free to call me at any time should questions regarding her orthopedic management arise. Coding Level of Care Code Global (90723) Diagnoses Knee pain, right M25.561
== END 2024-02-01 10:42 | disposition home or self-care (01) ==
PROVIDERS: PCP Internal Medicine; Visit Provider Orthopaedic Surgery
DX: M25.561 Pain in right knee (principal)
CPT/HCPCS: 99024

== ENCOUNTER → 2024-02-01 10:19 | Outpatient (BNVA) | payer BC, SELFPAY | PROVIDERS: PCP Internal Medicine; Visit Provider Orthopaedic Surgery ==

== ENCOUNTER 2024-04-24 13:57 | Outpatient (AMB) | payer BC, SELFPAY ==
--- NOTE | 2024-04-24 13:58 | MHC.OFFWIV ---
Intake Vital Signs 04/24/24 13:59 Height 5 ft 5 in Weight 201 lb BMI 33.4 BP 134/80 Blood Pressure Location Lt brachial Position Sitting Pulse 82 Pulse Source Pulse Oximeter Temp 97.9 F Temp Source Oral Pulse Oximetry (%) 97 Oxygen Delivery Method Room Air Intake Visit Reasons: EP cough, congestion, mucus Intake Note: Pt is here today for a walk in visit. Pt c/o cough congestion green/yellow mucus for over a week now. Patient Tobacco Use Status: Former Tobacco user Allergies codeine [CODEINE] Allergy (Severe, Verified 04/24/24 14:03) DIFFICULTY BREATHING HPI HPI Comments History of Present Illness Details Patient is a 68yo F who presents to office with cough Ongoing > 2 weeks Started as tickle cough She said cough gets so bad that she has back ache and phlegm associated Phlegm is green/yellow No fever or chills She denies ear pain Minimal tickle in throat No sinus pressure or headaches Patient tried OTC medicine PFSH Medical History Tinnitus Impaired fasting glucose POP-Q stage 2 cystocele Dyslipidemia Lumbago Tick bite of back Osteoarthritis of fingers of both hands Depression Plantar wart Surgical History H/O colonoscopy H/O: Family History Father No problems noted. Mother Substance use disorder Mental health disorder Social History Housing: House Alcohol intake: current Patient Tobacco Use Status: Former Tobacco user Years Smoked: 10 yrs e-Cigarette/Vaping Use: Never Used Second Hand Smoke Exposure: No service: No Current occupational status: retired Current occupational exposures/hazards: No Cognitive needs: No Hearing needs: No Vision needs: Yes (reading glasses) Review of Systems Const Denies chills, Denies fever(s) and Denies headache(s) Eyes Denies change in vision ENT Denies otalgia, Denies headache(s), Denies nasal discharge, Denies sinus pain, Denies sinus pressure, Reports sore throat, Denies throat swelling and Denies tongue swelling Card Denies chest pain and Denies dyspnea Resp Reports change in phlegm color, Reports cough, Denies hemoptysis, Reports excessive phlegm production and Denies dyspnea Musc Denies myalgias Neuro Denies headache(s) Aller/Immun Denies throat swelling and Denies tongue swelling Physical Exam Vital Signs: Last Vital Signs Temp 97.9 F 04/24/24 13:59 Pulse 82 04/24/24 13:59 BP 134/80 04/24/24 13:59 Pulse Ox 97 04/24/24 13:59 Oxygen Delivery Method Room Air 04/24/24 13:59 BMI result Body Mass Index 33.4 General: Non-toxic, NAD. Speaking full sentences. Skin: Warm dry throughout Eye: EOMI HENT: Airway patent. Uvula midline. No pharyngeal erythema or edema. 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 Mucosal membrane moist. Bilateral canals clear. TM non-erythematous, non-bulging. No TM perforation or hemotympanum noted. Respiratory: CTA bilaterally. No wheezes, rales or rhonchi Cardiac: RRR. No murmur MSK: Full ROM extremities. Neurology:Alert. No aphasia or facial droop. Gait without abnormality Psych: Good mood and affect Assessment & Plan Assessment & Plan (1) Cough: Code(s): R05.9 - Cough, unspecified Qualifiers: Cough type: acute Qualified Code(s): R05.1 - Acute cough Plan: Patient seen and evaluated. She has had ongoing cough > 2 weeks with associated colored phlegm. Chest xray ordered to r/o infiltrate Chest xray: I viewed image and ? lower R lobe early infiltrate Will cover with Azithromycin and tessalon Patient gave verbal understanding and had no additional questions or concerns at time of discharge All questions answered Orders: Orders XR chest 2V Today R05.9 - Cough, unspecified Medications: New benzonatate 200 mg PO BID-TID PRN 20 caps 0RF cough azithromycin For 250 mg dose pack: take 500 mg today (day 1), then 250 mg for 4 days (days 2-5) PO 6 tabs 0RF Coding Level of Care Code Est Pt Level 3 (54097) Diagnoses Acute cough R05.1 Cough type: acute
[2024-04-24 13:59] VITALS: BP 134/80; PULSE 82; TEMP 36.6; O2SAT 97; BMI 33.4
== END 2024-04-24 14:38 | disposition home or self-care (01) ==
PROVIDERS: PCP Internal Medicine; Visit Provider Physician Assistant
DX: R05.1 Acute cough (principal)

== ENCOUNTER 2024-04-24 13:57 | Outpatient (REF) | payer BC, SELFPAY ==
--- NOTE | ~2024-04-24 | XR_ITS ---
EXAMINATION: XR CHEST 2 VIEWS HISTORY: R05.9 - Cough, unspecified COMPARISON: There are no prior studies for comparison. FINDINGS: PA and lateral views of the chest are submitted. The lungs are expanded and clear. There is no pleural effusion, pneumothorax, or pulmonary vascular congestion. The heart is normal in size. There is a small to moderate hiatal hernia. The bones are intact. XR/XR chest 2V IMPRESSION: Small to moderate hiatal hernia. The lungs are clear. Electronically signed by: Joshua Robledo MD 04/24/2024 02:43 PM ROSY
== END 2024-04-24 13:58 | disposition home or self-care (01) ==
LOC: HO.HMGCX 13:57
PROVIDERS: PCP Internal Medicine; Visit Provider Physician Assistant
DX: R05.9 Cough, unspecified (principal)
CPT/HCPCS: 71046

== ENCOUNTER → 2024-04-24 14:18 | Outpatient (BNV) | payer BC, SELFPAY | PROVIDERS: PCP Internal Medicine; Visit Provider Radiology Diagnostic Radiology | DX: R05.9 Cough, unspecified (principal) | CPT/HCPCS: 71046 ==

== ENCOUNTER 2024-05-09 09:38 | Outpatient (AMB) | payer BC, SELFPAY ==
[2024-05-09 09:39] VITALS: BMI 33.4
--- NOTE | 2024-05-09 09:39 | A.OFFVIS_ITS ---
Vital Signs 05/09/24 09:39 Height 5 ft 5 in Weight 201 lb BMI 33.4 Intake Visit Reasons: OV - RT Knee 11/29/23 DR Intake Note: Jimena is a 69 year old female who presents with complaints of mild intermittent discomfort in her right knee after undergoing right knee arthroscopic surgery on 11/29/2023. The patient states that she recently aggravated her knee while kneel ing down to pick something up off of the ground. She has continued soreness when she goes up and down stairs. She does ride her recumbent bike for exercise. Allergies codeine [CODEINE] Allergy (Severe, Verified 05/09/24 09:47) DIFFICULTY BREATHING Medication List - Last Reconciled 05/09/24 by Octaviano Lopez MD azithromycin For 250 mg dose pack: take 500 mg today (day 1), then 250 mg for 4 days (days 2-5) PO Bacillus coagulans (Digestive Advantage Probiotics-Prebiotic) cells PO benzonatate 200 mg PO BID-TID PRN bupropion HCl XL 150 mg PO QAM cholecalciferol (vitamin D3) 25 mcg PO DAILY diclofenac sodium 1% 2 grams topical QID PRN estradiol 0.01%(0.1mg/gram) vaginal loratadine 10 mg PO DAILY lorazepam 0.5 mg PO DAILY PRN magnesium oxide 400 mg PO DAILY multivitamin-calcium carb-iron tabs PO ocomhybsjgod-lhshqlbb-orgnnu 1 tab PO DAILY omeprazole 20 mg PO DAILY tretinoin 0.025% appl topical turmeric root extract 500 mg PO DAILY vitamin B complex 1 tab PO DAILY PFSH Medical History Tinnitus Impaired fasting glucose POP-Q stage 2 cystocele Dyslipidemia Lumbago Tick bite of back Osteoarthritis of fingers of both hands Depression Plantar wart Surgical History H/O colonoscopy H/O: Family History Father No problems noted. Mother Substance use disorder Mental health disorder Social History Housing: House Alcohol intake: current Patient Tobacco Use Status: Former Tobacco user Years Smoked: 10 yrs e-Cigarette/Vaping Use: Never Used Second Hand Smoke Exposure: No service: No Current occupational status: retired Current occupational exposures/hazards: No Cognitive needs: No Hearing needs: No Vision needs: Yes (reading glasses) Physical Exam Vital Signs: BMI result Body Mass Index 33.4 Const Other: Well-nourished well-developed very friendly female awake alert and oriented x3 in no acute distress Extrem Other: Right knee examination shows minimal crepitus with range of motion, mild discomfort with range of motion, no instability Assessment & Plan Assessment & Plan (1) Arthritis of right knee: Code(s): M17.11 - Unilateral primary osteoarthritis, right knee Category: Medical Plan Ms. Boyd continues to do fairly well after undergoing right knee arthroscopic surgery on 11/29/2023. She does have residual discomfort due to degenerative joint disease. At this point the patient's symptoms are tolerable to her. We will hold off on an injection. She will continue with her home exercise program. She will follow up with me on an as-needed basis should her symptoms worsen in any way. Feel free to call me at any time should questions regarding her orthopedic management arise. I spent 21 minutes in reviewing the patient's records and imaging studies, seeing the patient and documenting in the medical record. Coding Level of Care Code Est Pt Level 3 (50484) Complex EM visit Add On G2211 Diagnoses Arthritis of right knee M17.11
== END 2024-05-09 10:01 | disposition home or self-care (01) ==
PROVIDERS: PCP Internal Medicine; Visit Provider Orthopaedic Surgery
DX: M17.11 Unilateral primary osteoarthritis, right knee (principal)
CPT/HCPCS: 99213

== ENCOUNTER → 2024-05-09 09:38 | Outpatient (BNVA) | payer BC, SELFPAY | PROVIDERS: PCP Internal Medicine; Visit Provider Orthopaedic Surgery ==

== ENCOUNTER 2024-05-10 13:16 | Outpatient (AMB) | payer BC, SELFPAY ==
--- NOTE | 2024-05-10 13:46 | A.OFFPC_ITS ---
Vital Signs 05/10/24 13:47 Height 5 ft 5 in Weight 199 lb BMI 33.1 BP 146/82 H Blood Pressure Location Lt brachial Position Sitting Respiration 16 Pulse 81 Pulse Source Pulse Oximeter Temp 98.0 F Temp Source Oral Pulse Oximetry (%) 98 Oxygen Delivery Method Room Air Intake Visit Reasons: Annual PE ~ R/S provider out Intake Note: Pt is here today for her PE: last mammogram 06/24/23, cologuard 03/04/24 Allergies codeine [CODEINE] Allergy (Severe, Verified 05/10/24 14:00) DIFFICULTY BREATHING Medication List - Last Reconciled 05/10/24 by Stacie Gonzalez MD Bacillus coagulans (Digestive Advantage Probiotics-Prebiotic) cells PO bupropion HCl XL 150 mg PO QAM cholecalciferol (vitamin D3) 25 mcg PO DAILY diclofenac sodium 1% 2 grams topical QID PRN estradiol 0.01%(0.1mg/gram) vaginal loratadine 10 mg PO DAILY lorazepam 0.5 mg PO DAILY PRN magnesium oxide 400 mg PO DAILY multivitamin 1 tab PO DAILY omeprazole 20 mg PO DAILY tretinoin 0.025% appl topical turmeric root extract 500 mg PO DAILY vitamin B complex 1 tab PO DAILY Tobacco use date assessed: 05/10/24 Fall risk assessment: No Falls in past year Last assessed Fall Risk: 05/10/24 Dental Screening Dental Screen Date: 05/10/24 HPI Annual PE ~ R/S provider out HPI Details 69-year-old lady with history of hyperli pidemia , impaired fasting glucose, depression, atrophic vaginitis, here today for physical exam. She is up-to-date with her screening mammogram done at [facility], on 06/24/2023 with negative findings. She had a bone density scan done 05/01/2021 which showed normal bone density, done at [facility]. Last colonoscopy was done by Dr. Olguin in 2017 which showed presence of sigmoid diverticulosis, did cologuard test on 02/28/24 with negative results . She stays active, travels a lot with . She still has shortness of breath on moderate exertion especially when walking on an incline, when she talks or laughs . This has been present now since she is had COVID 2 years ago. Denies any chest pain, no cough, no lightheadedness. She is up-to-date with all her vaccinations, except for shingles vaccine. [facility] Medical History (Updated 05/11/24 @ 02:06 by Stacie Gonzalez MD) Tinnitus Impaired fasting glucose POP-Q stage 2 cystocele Dyslipidemia Osteoarthritis of fingers of both hands Depression Plantar wart Surgical History H/O colonoscopy H/O: Family History Father No problems noted. Mother Substance use disorder Mental health disorder Social History Housing: House Alcohol intake: current Patient Tobacco Use Status: Former Tobacco user Years Smoked: 10 yrs e-Cigarette/Vaping Use: Never Used Second Hand Smoke Exposure: No service: No Current occupational status: retired Current occupational exposures/hazards: No Cognitive needs: No Hearing needs: No Vision needs: Yes (reading glasses) Questionnaire PHQ-9 Over the last 2 weeks, how often have you been bothered by any of the following problems? 1. Little interest or pleasure in doing things: not at all 2. Feeling down, depressed, or hopeless: not at all 3. Trouble falling or staying asleep, or sleeping too much: several days 4. Feeling tired or having little energy: several days 5. Poor appetite or overeating: several days 6. Feeling bad about yourself - or that you are a failure or have let yourself or your family down: several days 7. Trouble concentrating on things, such as reading the newspaper or watching television: several days 8. Moving or speaking so slowly that other people could have noticed. Or the opposite - being so fidgety or restless that you have been moving around a lot more than usual: not at all 9. Thoughts that you would be better off or of hurting yourself in some way: not at all Total score: 5 Depression Screening Interpretation: Negative (Controlled on bupropion) Depression Screening Done: Yes 30104 - PHQ-9 Billing: Yes Source: Developed by Drs. Joshua Tovar, Demi BBryant Bautista and colleagues, with an educational monico from [employer]. Thrive Questionnaire Date Thrive assessed: 05/03/24 I am a: Patient What is your living situation today?: I have a steady place to live Within the past 12 months, did the food you bought not last and you didn't have the money to get more?: Never true Within the past 12 months, did you worry whether your food would run out before you got money to buy more?: Never true Do you have trouble paying for medicines?: No Do you have trouble getting transportation to medical appointments?: No Do you have trouble paying your heating and electricity bill?: No Do you have trouble taking care of your child, family member or friend?: No Do you have trouble with day-to-day activities such as bathing, preparing meals, shopping, managing finances, etc.?: No Are you currently unemployed and looking for a job?: No Are you interested in more education?: No Please select the resources that you would like help with: None Currently or been in a relationship where the following occur: No concerns reported THRIVE Score: 0 AUDIT C Alcohol Use Questionnaire (AUDIT-C) 1. How often do you have a drink containing alcohol?: 4 or more times a week 2. How many drinks containing alcohol do you have on a typical day when you are drinking?: 1 or 2 3. How often do you have six or more drinks on one occasion?: Never Total Score: 4 OPAL-7 AMB Questionnaire OPAL-7 Date OPAL - 7 assessed: 05/10/24 Feeling nervous, anxious, or on edge: 1 = Several days Not being able to stop or control worryin = Not at all Worrying too much about different things: 0 = Not at all Trouble relaxin = Not at all Being so restless that it is hard to sit still: 0 = Not at all Becoming easily annoyed or irritable: 0 = Not at all Feeling afraid as if something awful might happen: 0 = Not at all Total OPAL-7 score (0-4 normal; 5-9 mild; 10-14 moderate; 15-21 severe): 1 Source: Developed by Drs. Joshua Tovar, Bryant Castanon and colleagues, with an educational monico from [employer]. OPAL-7 Assessment Billing OPAL-7 Assessment Tool: OPAL-7 Assessment 16718 Review of Systems Const Denies chills, Denies fever(s) and Denies headache(s) Eyes Denies change in vision ENT Denies otalgia, Denies headache(s), Denies nasal discharge, Denies sinus pain and Denies sinus pressure Card Denies chest pain and Reports dyspnea on exertion Resp Denies cough, Denies hemoptysis, Denies pain on inspiration, Reports dyspnea on exertion and Denies wheezing GI Reports no additional complaints Reports no additional complaints, Denies genital pruritis, Denies dyspareunia and Denies urinary incontinence Musc Denies myalgias Skin/Breast Denies breast pain, Denies breast mass, Denies lesions and Denies rash Neuro Denies headache(s) Psych Reports no additional complaints Endo Reports no additional complaints Ashu/Lymph Reports no additional complaints Aller/Immun Denies wheezing Physical exam (Primary Care) Vital Signs: Last Vital Signs Temp 98.0 F 05/10/24 13:47 Pulse 81 05/10/24 13:47 Resp 16 05/10/24 13:47 BP 146/82 H 05/10/24 13:47 Pulse Ox 98 05/10/24 13:47 Oxygen Delivery Method Room Air 05/10/24 13:47 BMI result Body Mass Index 33.1 Tobacco/Smoking Status: Tobacco use Status Tobacco use date assessed 05/10/24 05/10/24 13:50 Patient Tobacco Use Status Former Tobacco user 05/10/24 13:50 e-Cigarette/Vaping Use Never Used 05/10/24 13:50 PHQ-9: PHQ-9 Score PHQ-9: Total score 5 05/10/24 14:04 Depression Screening Interpretation: Negative (Controlled on bupropion) Thrive Assessment: Date of Thrive Assessment Date Thrive assessed 05/03/24 05/10/24 13:50 Currently or been in a relationship where the following occur: No concerns reported Advance Care Planning discussion: Completed/Scanned Date of discussion: 05/10/24 Who was present: Patient Forms completed: Health Care Proxy Time spent: 16-45 minutes Actual minutes spent: 3 Const General: comfortable, no acute distress and alert Orientation/consciousness: patient oriented x3 HENMT Ears: external ears normal, TM's normal bilaterally and EAC's normal General nose exam: Normal external nose present and No nasal discharge present Mouth: Normal oral and palatal mucosa present, oropharynx normal and moist mucous membranes Eyes General: appearance normal, both eyes and all related structures Neck Neck: Yes full ROM, Yes no lymphadenopathy and Yes supple Resp Effort & Inspection: normal respiratory effort and able to speak in complete sentences Auscultation: clear to auscultation bilaterally Cardio Rate: regular rate Rhythm: regular rhythm Heart sounds: S1 normal heart sound present and S2 normal heart sound present GI Palpation (GI): Soft to palpation, nontender and no masses Auscultation: normal bowel sounds Neuro General: patient oriented x3, gait normal, tone normal, moves all extremities, Normal light touch and pain sensation and no focal motor deficits Cranial nerves: Yes CN's II-XII intact bilaterally Cognition (Neuro): normal cognition Extrem General: Yes full ROM, Yes no joint enlargement, Yes no clubbing, cyanosis or edema and Yes no calf tenderness Psych Appearance: grossly normal and well kempt Mental Status: mental status grossly normal Speech and movement: Normal speech and movement present Affect: normal affect Attitude: cooperative Thought process: Normal thought process present Coding Level of Care Code Est Pt Prev Care >65y(01841) Diagnoses Annual visit for general adult medical examination with abnormal findings Z00.01 Recurrent major depressive disorder, in partial remission F33.41 Active/Remission status: in partial remission Depression Type: major depressive disorder Major depression recurrence: recurrent Osteoarthritis of fingers of both hands M19.041; M19.042 Dyslipidemia E78.5 Impaired fasting glucose R73.01 Encounter for counseling regarding advance directives Z71.89 Reactive airway disease J45.909 LIM (dyspnea on exertion) R06.09 Additional Codes Vital Signs *Quality* - Advance Care Planning discussion: Completed/Scanned ([id number]) Vital Signs *Quality* - Time spent: 16-45 minutes ([id number]) PHQ-9 - 10218 - PHQ-9 Billing: Yes ([id number]) OPAL-7 Assessment Billing - OPAL-7 Assessment Tool: OPAL-7 Assessment 13669 ([id number]) Assessment & Plan Assessment & Plan (1) Annual visit for general adult medical examination with abnormal findings: Code(s): Z00.01 - Encounter for general adult medical examination with abnormal findings Plan: Will check appropriate labs. Continue regular dental visit every 6 months and regular eye exams, at least every 2 years. Take adequate calcium in diet and vitamin-D 3 at 2000 IU per cap once a day, in addition to weight-bearing exercises to help maintain good muscle tone and weight control. Instructed to do self-breast exam, and continue with yearly mammogram, . Up-to-date with her bone density screening and screening colonoscopy, up-to-date with her vaccinations (2) Depression: Code(s): F32.9 - Major depressive disorder, single episode, unspecified Category: Medical Qualifiers: Active/Remission status: in partial remission Depression Type: major depressive disorder Major depression recurrence: recurrent Qualified Code(s): F33.41 - Major depressive disorder, recurrent, in partial remission Plan: Continue bupropion XL 150 mg once a day in a.m. (3) Osteoarthritis of fingers of both hands: Code(s): M19.041 - Primary osteoarthritis, right hand; M19.042 - Primary osteoarthritis, left hand Category: Medical Plan: Uses diclofenac sodium as needed currently on turmeric root extract (4) Dyslipidemia: Code(s): E78.5 - Hyperlipidemia, unspecified Category: Medical Plan: Fasting lipid panel ordered (5) Impaired fasting glucose: Code(s): R73.01 - Impaired fasting glucose Category: Medical Plan: Your previous fasting blood sugars were elevated above 100 mg/dL. Impaired glucose metabolism increases the risk for developing diabetes mellitus type 2, as well as heart attack and stroke later on. Lifestyle changes that promotes weight loss, healthy eating habits, and regular exercise are important, and can prevent the progression to diabetes. Ordered hemoglobin A1c and fasting blood sugar levels (6) Encounter for counseling regarding advance directives: Code(s): Z71.89 - Other specified counseling Plan: Initiated the conversation about Advanced Directives. Advanced Directives help patients prepare for current and future decisions about their medical treatment and place of care. Discussed with patient that it is a process where a patients current condition and prognosis are reviewed, their wishes for information regarding their illness are elicited, and likely medical dilemmas are presented and options discussed. Healthcare proxy completed today. The form can be amended as needed, reviewed yearly and make changes as needed (7) Reactive airway disease: Code(s): J45.909 - Unspecified asthma, uncomplicated Plan: Ordered PFT with methacholine challenge (8) LIM (dyspnea on exertion): Code(s): R06.09 - Other forms of dyspnea Category: Medical Plan: Ordered pulmonary function test and pulmonary function test with methacholine challenge Orders: Orders PFT pulmonary function test 05/10/24 R06.09 - Other forms of dyspnea RT pft w methacholine 05/10/24 R06.09 - Other forms of dyspnea Hemoglobin A1c 05/10/24 E78.5 - Hyperlipidemia, unspecified, F33.41 - Major depressive disorder, recurrent, in partial remission, J45.909 - Unspecified asthma, uncomplicated, M19.041 - Primary osteoarthritis, right hand, M19.042 - Primary osteoarthritis, left hand, N95.2 - Postmenopausal atrophic vaginitis, R73.01 - Impaired fasting glucose, Z00.01 - Encounter for general adult medical examination with abnormal findings, Z71.89 - Other specified counseling Aspartate Amino Transferase 05/10/24 E78.5 - Hyperlipidemia, unspecified, F33.41 - Major depressive disorder, recurrent, in partial remission, J45.909 - Unspecified asthma, uncomplicated, M19.041 - Primary osteoarthritis, right hand, M19.042 - Primary osteoarthritis, left hand, N95.2 - Postmenopausal atrophic vaginitis, R73.01 - Impaired fasting glucose, Z00.01 - Encounter for general adult medical examination with abnormal findings, Z71.89 - Other specified counseling Alanine Aminotransferase 05/10/24 E78.5 - Hyperlipidemia, unspecified, F33.41 - Major depressive disorder, recurrent, in partial remission, J45.909 - Unspecified asthma, uncomplicated, M19.041 - Primary osteoarthritis, right hand, M19.042 - Primary osteoarthritis, left hand, N95.2 - Postmenopausal atrophic vaginitis, R73.01 - Impaired fasting glucose, Z00.01 - Encounter for general adult medical examination with abnormal findings, Z71.89 - Other specified counseling Lipid Panel 05/10/24 E78.5 - Hyperlipidemia, unspecified, F33.41 - Major depressive disorder, recurrent, in partial remission, J45.909 - Unspecified asthma, uncomplicated, M19.041 - Primary osteoarthritis, right hand, M19.042 - Primary osteoarthritis, left hand, N95.2 - Postmenopausal atrophic vaginitis, R73.01 - Impaired fasting glucose, Z00.01 - Encounter for general adult medical examination with abnormal findings, Z71.89 - Other specified counseling Vitamin D 25-OH Total 05/10/24 E78.5 - Hyperlipidemia, unspecified, F33.41 - Major depressive disorder, recurrent, in partial remission, J45.909 - Unspecified asthma, uncomplicated, M19.041 - Primary osteoarthritis, right hand, M19.042 - Primary osteoarthritis, left hand, N95.2 - Postmenopausal atrophic vaginitis, R73.01 - Impaired fasting glucose, Z00.01 - Encounter for general adult medical examination with abnormal findings, Z71.89 - Other specified counseling
[2024-05-10 13:47] VITALS: BP 146/82; PULSE 81; RESP 16; TEMP 36.7; O2SAT 98; BMI 33.1
--- OUTSIDE RECORDS SUMMARY | 2024-05-10 15:22 | XMS_ITS ---
Author Organization [facility] Address [address] [place] [address] Care Team Providers Care Strip Catcher Name Role Phone Lisa HOPPER, Stacie Sifuentes Primary Care Provider Un available Alma Valadez [phone] Encounters Encounter Location Date Provider Diagnosis [facility] [address] [place] [address] 07/26/2023 Alma Black Plan Of Treatment No Information Progress Notes * SCARLETTJimena MCKEON JDOB:[birth year] (69 yo F)Acc No.[id number]:07/26/2023 Progress Notes Patient:?Jimena BOYD Provider:?Alma Valadez DPM :1955???Age:68 Y???Sex:Female D ate:07/26/2023 Address:[facility] [address] [place], [place] Pcp:León Auguste Subjective: * Chief Complaints: * ??? * Medical History:? Objective: * Vitals:? Assessment: Plan: * Treatment: * Images: * The named appointment provid er may or may not be the originator of this progress note, and it is not deemed complete until electronically signed by the appointment provider. Sign off status: Pending * Provider:?Alma Valadez DPM Date:?2023 Generated for Augustin welsh/Payal/eTransmitting on:?05/10/2024 03:22 PM EST
--- OUTSIDE RECORDS SUMMARY | 2024-05-10 15:22 | XMS_ITS | Patient Health Record ---
Author Organization [facility] Address [address] [facility] [place] [address] Care Team Providers Care Gas Operator Name Role Phone Lisa HOPPER, Stacie Sifuentes Primary Care Provider Un available Black, Alma Unavailable [phone] Allergies Allergen (clinical drug ingredient) Drug/Non Drug Allergy documented on EMR Reaction Allergy Type Onset Date Status codeine Codeine breathing problems Drug Allergy Active Reason For Referral No Information Medications Medication SIG (Take, Route, Frequency, Duration) Notes Start Date End Date Status Night Splint AFO - L1930 as directed 01/14/2016 Not-Taking LORazepam 0.5 MG Orally prn Ac tive Night Splint AFO - L1930 1 wear at rest for 30 days Active Omeprazole 20 MG 1 capsule 30 minutes before morning meal Orally Once a day Not-Taking Physical Therapy . . . 2-3x/week for 3- 4 weeks 06/25/2023 Not-Taking Omeprazole 20 MG 1 capsule Orally Onc e a day Active predniSONE 10 MG 1 tablet Orally Once a day for 30 day(s) Not-Taking buPROPion HCl Active Loratadine OTC, daily Active Physical Therapy . . . 2-3x/week for 3- 4 weeks 03/11/2016 Not-Taking Physical Therapy 3-4x per week for 3- 4 weeks 02/11/2016 Not-Taking Social History Tobacco Use: Social History Observation Description Date Details (start date - stop date) Never Smoker NA - NA Tobacco Use/Smoking Question Answer Notes Are you a: nonsmoker Additional Findings: Tobacco Non-User Current no n-smoker Alcohol Screen Question Answer Notes Did you have a drink contain ing alcohol in the past year? Yes How often did you have a dri nk containing alcohol in the past year? 4 or more times a week (4 points) Points 4 Interpretation Positive Tobacco use other than smoking: Question Answer Notes Are you an other tobacco user? No Problems Problem Type SNOMED Code ICD Code Onset Dates Problem Status W/U Status Risk Notes Problem Acquired hallux valgus (38107760) Hallux valgus (acquired), left foot (M20.12) Active confirmed Problem Localized, primary osteoarthritis of the ankle and/or foot (827642575) Primary osteoarthritis, right ankle and foot (M19.071) Active confirmed Problem Acquired hallux valgus (26788075) Hallux valgus (acquired), right foot (M20.11) Active confirmed Problem Acquired hammer toe of right foot (2587516335725602) Other hammer toe(s) (acquired), right foot (M20.41) Active confirmed Problem Acquired hammer toe of left foot (2390661920398500) Other hammer toe(s) (acquired), left foot (M20.42) Active confirmed Problem Joint contracture of the ankle and/or foot (210428535) Flexion contracture of joint of right foot (M24.574) Active confirmed Problem Joint contracture of the ankle and/or foot (226212486) Flexion contracture of joint of left foot (M24.575) Active confirmed Problem Interstitial myositis (55693853) 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 confirmed Vital Signs Height 5ft 5in in 12/20/2023 Weight 190 lbs 12/20/2023 BMI 31.61 kg/m2 12/20/2023 Encounters Encounter Location Date Provider [facility] [address] [place] [address] 06/25/2023 Alma Black Pain in left foot M79.672 ; Plantar fasciitis of left foot M72.2 ; Calcaneal spur, left foot M77.32 ; Interstitial myositis of left foot M60.172 and Bursitis of left foot M77.52 [facility] [address] [place] [address] 12/20/2023 Alma Black Pain in left foot M79.672 ; Plantar fasciitis of left foot M72.2 ; Calcaneal spur, left foot M77.32 ; Interstitial myositis of left foot M60.172 and Bursitis of left foot M77.52 [facility] [address] [place] [address] 05/26/2023 [facility] [place] [address] [place] [address] 07/06/2023 [facility] [place] [address] [facility] [address] [place] [address] 08/30/2023 [facility] Encounter Date Diagnosis (ICD Code) Assessment Notes Treatment Notes Treatment Clinical Notes Section Notes 06/25/2023 Pain in left foot (ICD-10 - M79.672) 06/25/2023 Plantar fasciitis of left foot (ICD-10 - M72.2) 12/20/2023 Pain in left foot (ICD-10 - M79.672) 12/20/2023 Plantar fasciitis of left foot (ICD-10 - M72.2) 12/20/2023 Calcaneal spur, left foot (ICD-10 - M77.32) 06/25/2023 Calcaneal spur, left foot (ICD-10 - M77.32) 06/25/2023 Interstitial myositis of left foot (ICD-10 - M60.172) 12/20/2023 Interstitial myositis of left foot (ICD-10 - M60.172) 06/25/2023 Bursitis of left foot (ICD-10 - M77.52) 12/20/2023 Bursitis of left foot (ICD-10 - M77.52) Plan Of Treatment Pending Test Test Name Order Date [id number] NAIL, 1-5 08/02/2019 65603- Debride <25 sq cm 08/18/2019 60798 I&D ABSCESS- SIMPLE,SINGLE 020 ,[id number] TENDON SHEATH/LIGAMENT 1 50,[id number] TENDON SHEATH/LIGAMENT 0 05/06/201661066,L3600-ELI TENDON SHEATH/LIGAMENT 0 06/15/201628094- Ganglion Cyst Injection/Aspiratio n 10/25/2018- Ganglion Cyst Injection/Aspiratio n 12/27/2018 03388 - Tenotomy, open flexor 09/12/2019 Insurance Providers Payer Name Payer Address Payer Phone Subscriber Number Group Number Insured Name Patient Relationship to Insured Coverage Start Date Coverage End Date BlueCare 65 Medicare Preferred [address] [place] [address] [id number] Jimena Boyd Self - patient is the insured Medical (General) History Medical History History ICD Code Arthritis Back,Hip,and Knee pain Stomach ulcer Warts Measles Mumps covid-19 Depression Reflux ( GERD) Surgical History Surgery Date(Month/Year) section 08/1981 bladder lift 07/2022 knee surgery, right - torn meniscus 11/11
--- OUTSIDE RECORDS SUMMARY | 2024-05-10 15:23 | XMS_ITS ---
Author [facility] Address [address] [facility] [place] [address] Care Team Providers Care Auction Assistant Name Role Phone Lisa HOPPER, Stacie Sifuentes Primary Care Provider Un available Black, Alma Unavailable [phone] Allergies Allergen (clinical drug ingredient) Drug/Non Drug Allergy documented on EMR Reaction Allergy Type Onset Date Status codeine Codeine breathing problems Drug Allergy Active REASON FOR VISIT Pcp- 09/02, Heel pain Medications Medication SIG (Take, Route, Frequency, Duration) [...] Are you an other tobacco user? No Vital Signs Height 5ft 5in in 12/20/2023 Weight 190 lbs 12/20/2023 BMI 31.61 kg/m2 12/20/2023 Encounters Encounter Location Date Provider Diagnosis [facility] [place] [address] [place] [address] 12/20/2023 Alma Black Pain in left foot M79.672 ; Plantar fasciitis of left foot M72.2 ; Calcaneal spur, left foot M77.32 ; Interstitial myositis of left foot M60.172 and Bursitis of left foot M77.52 Assessments Encounter Date Diagnosis (ICD Code) Assessment Notes Treatment Notes Treatment Clinical Notes Section Notes 12/20/2023 Pain in left foot (ICD-10 - M79.672) 12/20/2023 Plantar fasciitis of left foot (ICD-10 - M72.2) 12/20/2023 Calcaneal spur, left foot (ICD-10 - M77.32) 12/20/2023 Interstitial myositis of left foot (ICD-10 - M60.172) 12/20/2023 Bursitis of left foot (ICD-10 - M77.52) Plan Of Treatment Next Appt Details Follow Up: prn, Reason: Progress Notes * Jimena BOYDDOB:[birth year] (68 yo F)Acc No.[id number]:12/20/2023 Progress Note Patient:?SaúlJimena grewal Provider:?Alma Valadez DPM :1955???Age:68 Y???Sex:Female D ate:12/20/2023 Address:[address] [place], [place] [address] Pcp:León Auguste Subjective: * Chief Complaints: * ???Pcp- 05/24Heel pain * HPI: ???Heel pain:?Nature:?sharp pain , aching , tenderness.?Location:?Proximal plantar aspect of Heel, LEFT.?Duration:?, several months.?Course:?, improved , at approximately 70 %.?Aggravated:?standing, walking, walking first thing in the morning/after rest.?Treatments:?rest/alter normal daily activity , stretching,rolling a tennis,tylenol (due to hx of stomach ulcers) , AFO-nightsplint,inserts physical therapy in June.? * ROS:?General/Constitutional:?Nausea?denies.?Vomiting?denies.?Hunger Thirst?denies.?Loss appetite?denies.?Chills?denies.?Fatigue?denies.?Fever?denies.?Night Sweats?denies.?Unexplained weight loss?denies.?Unexplained weight gain?denies.?HEENTM:?Dentures?denies.?Dizziness?denies.?Glasses/contacts?denies.?Retinopathy?de nies.?Blurred/double vision?denies.?TMJ?denies.?Discharge/drainage?denies.?Implants?denies.?Sore throat?denies.?Dental implants?denies.?Hard of hearing ?denies.?Difficulty chewing/swallowing/speaking?denies.?Nose bleeds?denies.?Sore mouth?denies.?Respiratory:?On Oxygen?denies.?Pneumonia/pleurisy?denies.?Bronchitis?denies.?Emphysema?denies.?C oughing?denies.?Cough blood?denies.?Shortness of breath?admits.?Wheezing?denies.?Cardiovascular:?Pacemaker?denies.?MVP?denies.?WPW?denies.?CHF?denies.?Heart attack?denies.?Septal defect?denies.?Rapid beat?denies.?Chest pain ?denies.?Atrial Fib.?denies.?Murmur/Palpitations?denies.?Gastrointestinal:?Hemorrhoids?denies.?Stomach/Abdominal pain?denies.?Dark blood stool?denies.?Irritable bowel ?admits.?Constipation?denies.?Diarrhea?denies.?Hematology:?Swelling?denies.?Clots?denies.?Varicose Veins?denies.?Bruising?denies.?Bleeding problem?denies.?Genitourinary:?Blood urine?denies.?Frequent/Painfu/urination/bladder control?denies.?Kidney stones?denies.?Infection (UTI)?denies.?Nephropathy?denies.?sex trans dis (STD)?denies.?Prostate?denies.?Musculoskeletal:?Hammertoes?admits.?Bunions?admits.?Back Pain?admits.?Muscle Cramps/ Resting?denies.?Muscle cramps / walking?denies.?Generalized aches and pains?denies.?Weakness?denies.?Integ.:?Dangelo?denies.?Scars?denies.?Corns/calluses?admits.?Ingrown nails?admits.?Painful nails?denies.?Open Sores?denies.?Rashes?denies.?Neurologic:?Difficulty sleeping?denies.?Brain disorder?denies.?Numbness?denies.?Balance trouble?denies.?Confusion?denies.?Fainting/blackouts?denies.?Tingling?denies.?Tr emors?denies.? * Medical History:? * Surgical History:? s ection 08/1981bladder lift nee surgery, right - torn meniscus 12/06/2023 * Hospitalization/Major Diagno stic Procedure:?Denies Past Hospitalization * Family History:?Mother: dece ased, poor circulation, kidney/liver disease.?Father: , diagnosed with Diabetic - NIDDM, Other malignant neoplasm of unspecified site.?Maternal Grand Father: diagnosed with Unspecified cerebral artery occlusion with cerebral infarction.? * Social History:?Tobacco Use:?Tobacco Use/Smoking?Are you a:?nonsmoker ?Additional Findings: Tobacco Non-User?Current non-smoker ?Tobacco use other than smoking?Are you an other tobacco user??No ???Drugs/Alcohol:?Drugs?Have you used drugs other than those for medical reasons in the past 12 months??No ?Alcohol Screen?Did you have a drink containing alcohol in the past year??Yes ?How often did you have a drink containing alcohol in the past year??4 or more times a week (4 points) ?Points?4 ?Interpretation?Positive ???Miscellaneous:?Caffeine: yes, 1-2 cups per day tea. ?Children: yes, 2. ?Exercise: yes, walking, bicycle, golf. ?Marital status: . 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 * Medications:?TakingOmeprazol e 20 MG Capsule Delayed Release 1 capsule Orally Once a dayLoratadine , Notes: OTC, dailybuPROPion HCl Night Splint AFO - L1930 1 wear at restLORazepam 0.5 MG Tablet Orally prnTaking Omeprazole 20 MG Capsule Delayed Release 1 capsule Orally Once a dayTaking Loratadine , Notes: OTC, dailyTaking buPROPion HCl Taking Night Splint AFO - L1930 1 wear at restTaking LORazepam 0.5 MG Tablet Orally prnNot-Taking/PRNPhysical Therapy . . . . 2-3x/weekOmeprazole 20 MG Capsule Delayed Release 1 capsule 30 minutes before morning meal Orally Once a dayNight Splint AFO - L1930 as directed Physical Therapy 3-4x per week for 3-4 weeks Physical Therapy . . . . 2-3x/weekpredniSONE 10 MG Tablet 1 tablet Orally Once a dayMedication List reviewed and reconciled with the patientNot-Taking/PRN Physical Therapy . . . . 2-3x/weekNot-Taking/PRN Omeprazole 20 MG Capsule Delayed Release 1 capsule 30 minutes before morning meal Orally Once a dayNot-Taking/PRN Night Splint AFO - L1930 as directed Not-Taking/PRN Physical Therapy 3-4x per week for 3-4 weeks Not- Taking/PRN Physical Therapy . . . . 2-3x/weekNot-Taking/PRN predniSONE 10 MG Tablet 1 tablet Orally Once a dayMedication List reviewed and reconciled with the patient * Allergies:?Codeine: jeremiah mccormack[Allergies Verified] Objective: * Vitals:?Ht: 5ft 5in, Wt:190, BMI:31.61, Shoe size: 9.5-10, Ht-cm: 165.1 cm, Wt- k.18 kg. * Examination: ???Orthopedic: ?GAIT ABNORMALITY:?antalgic.?FOOT MORPHOLOGY:? Pes Planus structure, Decreased Ankle joint dorsiflexion ROM, knee extended.?Heel Pain: ?INSPECTION:? Pain on Palpation to Plantar Fascia med. and central bands, intrinsic musc., infra-calcaneal bursa, and med calc tubercle , LEFT foot, No pain: posterior/superior heel, achilles bursa/tendon, sinus tarsi, peroneals, or with lateral heel compression; no limited STJ ROM, calor, or ecchymosis, approximately 70 % LESS.? Assessment: * Assessment: 1.?Pain in left foot - M79.6 72?2.?Plantar fasciitis of left foot - M72.2 (Primary), Acute problem, Complicated w/ Multiple Tx Options(4)?3.?Calcaneal spur, left foot - M77.32 4.?Interstitial myositis of left foot - M60.172?5.?Bursitis of left foot - M77.52? Plan: * Treatment: * Procedure Codes:? * Preventive Medicine:? ??Counseling:?Discussion:?-13: Office or other outpatient visit for the evaluation and management of an established patient, which required a medically appropriate history and/or examination and LOW level of DECISION MAKING for: 1 STABLE ACUTE UNCOMPLICATED PROBLEM, 2 OR MORE MINOR PROBLEMS, OR 1 STABLE CHRONIC PROBLEM, THAT POSE(S) A LOW RISK FOR MORBIDITY/MORTALITY. The visit on the day of the encounter encompassed interpreting the data and educating the patient as to the nature of their condition, treatment options available according to their individual PMH, meds, allergies, and overall health/living conditions, as well as any potential risks or complications that may occur from a failure to adhere to, and participate in, the recommended course of therapy. The discussion included a complete verbal, and/or written explanation of the examination results, any x-rays taken, the proposed diagnosis, and outline of the treatment plan. A schedule for future care needs was also explained. The patient verbalized an understanding of the instructions at this time and agreed to be an active participant in their treatment. If the patient should think of any questions or concerns after the visit, I have encouraged the patient to call the office.?Physical Therapy:?Reviewed notes from Physical Therapist with the patient, Discussed other tx options for the patients condition,EPAT Keyla and Menaaz brochures are given to the pt. However before moving forward with one of thios tx options I recomm steriod injection.?Steriod Injection:?I explained that a steroid and local anesthetic injections are administered to relieve pain and inflammation and thereby meant to improve function. I explained the possible complications including but not limited to signs/symptoms of steroid flare, infection, bruising, atrophy, discoloration of skin, change/deviation in toe position, and that additional injections may be necessary, cortisone post-injection informative educational handout was dispensed to and reviewed with the patient, Pt defers injection today.? * Follow Up:?prn * Images: * Sign off status: Completed true * Provider:?Alma Valadez DPM Date:?2023 Generated for Augustin welsh/Payal/eTransmitting on:?05/10/2024 03:23 PM EST History and Physical Notes * HPI (History of Present Illness) Category Sub-Category Detail Notes Category Not es Heel pain Duration: , several months Nature: sharp pain , aching , tenderness Location: Proximal plantar asp ect of Heel, LEFT Aggravated: standing, walking, w alking first thing in the morning/after rest Course: , improved , at appr oximately 70 % Treatments: rest/alter normal da payton activity , stretching,rolling a tennis,tylenol (due to hx of stomach ulcers) , AFO-nightsplint,inserts physical therapy in June Examination Category Sub-Category Detail Notes Category Not es Orthopedic GAIT ABNORMALITY: antalgic FOOT MORPHOLOGY: Pes Planus structure , Decreased Ankle joint dorsiflexion ROM, knee extended Heel Pain INSPECTION: Pain on Palpatio n to Plantar Fascia med. and central bands, intrinsic musc., infra-calcaneal bursa, and med calc tubercle , LEFT foot, No pain: posterior/superior heel, achilles bursa/tendon, sinus tarsi, peroneals, or with lateral heel compression; no limited STJ ROM, calor, or ecchymosis, approximately 70 % LESS
--- OUTSIDE RECORDS SUMMARY | 2024-05-10 15:23 | XMS_ITS ---
Author Organization [facility] Address [address] [place] [address] Care Team Providers Care Enrollment Processor Name Role Phone Lisa HOPPER, Stacie Sifuentes Primary Care Provider Un available Black, Alma Unavailable [phone] REASON FOR VISIT Requesting appt Encounters Encounter Location Date Provider Diagnosis [facility] [address] [facility] [address] [place] [address] 08/30/2023 Alma Black Plan Of Treatment No Information Progress Notes * Jimena BOYDDOB:[birth year] (68 yo F)Acc No.[id number]:08/30/2023 Patient:?Jimena Boyd :1955???Age:68 Y???Sex:Female Address:[place] [address] * true * Date:? Generated for Augustin welsh/Payal/eTransmitting on:?05/10/2024 03:23 PM EST
== END 2024-05-10 15:22 | disposition home or self-care (01) ==
PROVIDERS: PCP Internal Medicine; Visit Provider Internal Medicine
DX: Z00.01 Encounter for general adult medical examination with abnormal findings (principal); F33.41 Major depressive disorder, recurrent, in partial remission; M19.041 Primary osteoarthritis, right hand; M19.042 Primary osteoarthritis, left hand; E78.5 Hyperlipidemia, unspecified; R73.01 Impaired fasting glucose; Z71.89 Other specified counseling; J45.909 Unspecified asthma, uncomplicated; R06.09 Other forms of dyspnea; Z00.00 Encounter for general adult medical examination without abnormal findings

== ENCOUNTER → 2024-05-10 13:16 | Outpatient (BNVA) | payer BC, SELFPAY | PROVIDERS: PCP Internal Medicine; Visit Provider Internal Medicine | DX: Z00.01 Encounter for general adult medical examination with abnormal findings (principal); F33.41 Major depressive disorder, recurrent, in partial remission; M19.041 Primary osteoarthritis, right hand; M19.042 Primary osteoarthritis, left hand; E78.5 Hyperlipidemia, unspecified; R73.01 Impaired fasting glucose; J45.909 Unspecified asthma, uncomplicated; R06.09 Other forms of dyspnea; Z79.899 Other long term (current) drug therapy; Z71.89 Other specified counseling | CPT/HCPCS: 96127 ==

== ENCOUNTER 2024-05-11 08:54 | Outpatient (REF) | payer BC, SELFPAY ==
[2024-05-11 10:41] LABS: Estimated Average Glucose 123 mg/dL; Hemoglobin A1C 155.3348 umol/L; Hemoglobin A1c % 5.9 % (<6.0); Total Hemoglobin (HGBA1C) 3762.7428 umol/L
[2024-05-11 11:01] LABS: Alanine Aminotransferase 27 U/L (0-31); Aspartate Amino Transferase 25 U/L (5-31); Cholesterol 212 mg/dL (<200); HDL Cholesterol 57 mg/dL (>40); LDL Cholesterol Calculated 137 mg/dL (<100); Triglycerides 94 mg/dL (<150)
--- OUTSIDE RECORDS SUMMARY | 2024-05-11 11:46 | XMS_ITS ---
Author Organization [facility] Address [address] [place] [address] Care Team Providers Care Gate Keeper Name Role Phone Lisa HOPPER, Stacie Sifuentes Primary Care Provider Un available Alma Valadez [phone] Encounters Encounter Location Date Provider Diagnosis [facility] [address] [place] [address] 07/26/2023 Alma Black Plan Of Treatment No Information Progress Notes * NASIMRudolphJimena MCKEON JDOB:[birth year] (69 yo F)Acc No.[id number]:07/26/2023 Progress Notes Patient:?Jimena BOYD Provider:?Alma Valadez DPM :1955???Age:68 Y???Sex:Female D ate:07/26/2023 Address:[facility] [address] [place], [place] Pcp:León Auguste Subjective: * Chief Complaints: * ??? * Medical History:? Objective: * Vitals:? Assessment: Plan: * Treatment: * Images: * The named appointment provid er may or may not be the originator of this progress note, and it is not deemed complete until electronically signed by the appointment provider. Sign off status: Pending * Provider:?Alma Valadez DPM Date:?2023 Generated for Augustin welsh/Payal/eTransmitting on:?05/11/2024 11:46 AM EST
--- OUTSIDE RECORDS SUMMARY | 2024-05-11 11:46 | XMS_ITS | Patient Health Record ---
Author Organization [facility] Address [address] [facility] [place] [address] Care Team Providers Care Morale Officer Name Role Phone Lisa HOPPER, Stacie Sifuentes Primary Care Provider Un available Black, Alma Unavailable [phone] Allergies Allergen (clinical drug ingredient) Drug/Non Drug [...] Status Risk Notes Problem Acquired hallux valgus (07587968) Hallux valgus (acquired), left foot (M20.12) Active confirmed Problem Localized, primary osteoarthritis of the ankle and/or foot (118058746) Primary osteoarthritis, right ankle and foot (M19.071) Active confirmed Problem Acquired hallux valgus (90741230) Hallux valgus (acquired), right foot (M20.11) Active confirmed Problem Acquired hammer toe of right foot (6142406850992942) Other hammer toe(s) (acquired), right foot (M20.41) Active confirmed Problem Acquired hammer toe of left foot (0705965179563916) Other hammer toe(s) (acquired), left foot (M20.42) Active confirmed Problem Joint contracture of the ankle and/or foot (395927792) Flexion contracture of joint of right foot (M24.574) Active confirmed Problem Joint contracture of the ankle and/or foot (378846264) Flexion contracture of joint of left foot (M24.575) Active confirmed Problem Interstitial myositis (46246072) 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 confirmed Vital Signs Height 5ft 5in in 12/20/2023 Weight 190 lbs 12/20/2023 BMI 31.61 kg/m2 12/20/2023 Encounters Encounter Location Date [facility] [address] [place] [address] 06/25/2023 Alma Black Pain in left foot M79.672 ; Plantar fasciitis of left foot M72.2 ; Calcaneal spur, left foot M77.32 ; Interstitial myositis of left foot M60.172 and Bursitis of left foot M77.52 [facility] [address] [place] [address] 12/20/2023 Alma Black Pain in left foot M79.672 ; Plantar fasciitis of left foot M72.2 ; Calcaneal spur, left foot M77.32 ; Interstitial myositis of left foot M60.172 and Bursitis of left foot M77.52 [facility] [address] [place] [address] 05/26/2023 [facility] [place] [address] [place] [address] 07/06/2023 [facility] [place] [address] [facility] [address] [place] [address] 08/30/2023 [facility] Encounter Date Diagnosis (ICD Code) Assessment Notes [...] Treatment Pending Test Test Name Order Date [id number] NAIL, 1-5 08/02/2019 95295- Debride <25 sq cm 08/18/2019 33800 I&D ABSCESS- SIMPLE,SINGLE 020 ,[id number] TENDON SHEATH/LIGAMENT 1 50,[id number] TENDON SHEATH/LIGAMENT 0 05/06/201631324,J3477-CKB TENDON SHEATH/LIGAMENT 0 06/15/201671795- Ganglion Cyst Injection/Aspiratio n 10/25/2018- Ganglion Cyst Injection/Aspiratio n 12/27/2018 17213 - Tenotomy, open flexor 09/12/2019 Insurance Providers Payer Name Payer Address Payer Phone Subscriber Number Group Number Insured Name Patient Relationship to Insured Coverage Start Date Coverage End Date BlueCare 65 Medicare Preferred [address] [place] [address] [id number] Jimena Boyd Self - patient is the insured Medical (General) History Medical History History ICD Code Arthritis Back,Hip,and Knee pain Stomach ulcer Warts Measles Mumps covid-19 Depression Reflux ( GERD) Surgical History Surgery Date(Month/Year) section 08/1981 bladder lift 07/2022 knee surgery, right - torn meniscus 11/11
--- OUTSIDE RECORDS SUMMARY | 2024-05-11 11:47 | XMS_ITS ---
Author Organization [facility] Address [address] [place] [address] Care Team Providers Care Event Marketing Manager Name Role Phone Lisa HOPPER, Stacie Sifuentes Primary Care Provider Un available Black, Alma Unavailable [phone] REASON FOR VISIT Requesting appt Encounters Encounter Location Date Provider Diagnosis [facility] [address] [facility] [address] [place] [address] 08/30/2023 Alma Black Plan Of Treatment No Information Progress Notes * Jimena BOYDDOB:[birth year] (68 yo F)Acc No.[id number]:08/30/2023 Patient:?Jimena Boyd :1955???Age:68 Y???Sex:Female Address:[place] [address] * true * Date:? Generated for Augustin welsh/Payal/eTransmitting on:?05/11/2024 11:46 AM EST
--- OUTSIDE RECORDS SUMMARY | 2024-05-11 11:47 | XMS_ITS ---
Author Organization [facility] Address [address] [facility] [place] [address] Care Team Providers Care Water Ski Assembler Name Role Phone Lisa HOPPER, Stacie Sifuentes Primary Care Provider Un available Black, Alma Unavailable [phone] Allergies Allergen (clinical drug ingredient) Drug/Non Drug [...] 12/20/2023 Encounters Encounter Location Date Provider Diagnosis [facility] [address] [place] [address] 12/20/2023 Alma Black Pain in left foot [...] * Jimena BOYDDOB:[birth year] (68 yo F)Acc No.[id number]:12/20/2023 Progress Note Patient:?SaúlJimena grewal Provider:?Alma Valadez DPM :1955???Age:68 Y???Sex:Female D ate:12/20/2023 Address:[address] [place], [place] [address] Pcp:León Auguste Subjective: * Chief Complaints: * [...] bicycle, golf. ?Marital status: . 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 * Medications:?TakingOmeprazol e 20 MG Capsule Delayed [...] DPM Date:?2023 Generated for Augustin welsh/Payal/eTransmitting on:?05/11/2024 11:47 AM EST History and Physical Notes * HPI [...]
== END 2024-05-11 08:55 | disposition home or self-care (01) ==
LOC: HO.HMGCLDS 08:54
PROVIDERS: PCP Internal Medicine; Visit Provider Internal Medicine
DX: Z00.01 Encounter for general adult medical examination with abnormal findings (principal); J45.909 Unspecified asthma, uncomplicated; Z71.89 Other specified counseling; M19.042 Primary osteoarthritis, left hand; M19.041 Primary osteoarthritis, right hand; N95.2 Postmenopausal atrophic vaginitis; F33.41 Major depressive disorder, recurrent, in partial remission; E78.5 Hyperlipidemia, unspecified; R73.01 Impaired fasting glucose
CPT/HCPCS: 36415; 80061; 82306; 83036; 84450; 84460

== ENCOUNTER 2024-07-19 09:45 | Outpatient (REF) | payer MEDICARE, SELFPAY ==
--- NOTE | 2024-07-19 09:51 | PFT_ITS ---
Flows: FEV1: 97 % of predicted at 2.22 L FVC: 97 % of predicted at 2.86 L FEV1/FVC: 78 % Bronchodilator response: Present in small to medium airways only Volumes: Total lung capacity: 96 % of predicted at 4.93 L Residual volume: 96 % of predicted at 1.94 L Slow vital capacity: 97 % of predicted at 2.99 L Expiratory reserve volume: 34 % of predicted at 0.26 L Diffusion capacity: Normal Impression: No obstructive or restrictive ventilatory defect. Bronchodilator response is present in small to medium airways only. Decreased expiratory reserve volume suggests extrathoracic restriction likely secondary to abdominal obesity. MTDD
[2024-07-19 10:33] VITALS: PULSE 74; O2SAT 95
--- OUTSIDE RECORDS SUMMARY | 2024-07-19 10:43 | XMS_ITS ---
Author Organization [facility] Address [address] [place] [address] Care Team Providers Care World Language Teacher Name Role Phone Lisa HOPPER, Stacie Sifuentes Primary Care Provider Un available Black, Alma Unavailable [phone] REASON FOR VISIT Requesting appt Encounters Encounter Location Date Provider Diagnosis [facility] [address] [facility] [address] [place] [address] 08/30/2023 Alma Black Plan Of Treatment No Information Progress Notes * Jimena BOYDDOB:[birth year] (68 yo F)Acc No.[id number]:08/30/2023 Patient:?Jimena Boyd :1955???Age:68 Y???Sex:Female Address:[place] [address] * true * Date:? Generated for Charlottei anitha/Payal/eTransmitting on:?07/19/2024 10:42 AM EDT
--- OUTSIDE RECORDS SUMMARY | 2024-07-19 10:43 | XMS_ITS ---
Author Organization [facility] Address [address] [facility] [place] [address] Care Team Providers Care Frog Catcher Name Role Phone Lisa HOPPER, Stacie Sifuentes Primary Care Provider Un available Black, Alma Unavailable [phone] Allergies Allergen (clinical drug ingredient) Drug/Non Drug [...] 12/20/2023 Encounters Encounter Location Date Provider Diagnosis [facility] [address] [place] [address] 12/20/2023 Alma Black Pain in left foot [...] * Jimena BOYDDOB:[birth year] (68 yo F)Acc No.[id number]:12/20/2023 Progress Note Patient:?SaúlJimena grewal Provider:?Alma Valadez DPM :1955???Age:68 Y???Sex:Female D ate:12/20/2023 Address:[address] [place], [place] [address] Pcp:León Auguste Subjective: * Chief Complaints: * [...] bicycle, golf. ?Marital status: . 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 * Medications:?TakingOmeprazol e 20 MG Capsule Delayed [...] reconciled with the patient * Allergies:?Codeine: jeremiah mcocrmack[Allergies Verified] Objective: * Vitals:?Ht: 5ft 5in, Wt:190, [...] Valadez DPM Date:?2023 Generated for Augustin welsh/Payal/eTransmitting on:?07/19/2024 10:42 AM EDT History and Physical Notes * HPI (History [...]
--- OUTSIDE RECORDS SUMMARY | 2024-07-19 10:43 | XMS_ITS | Patient Health Record ---
Author Organization [facility] Address [address] [facility] [place] [address] Care Team Providers Care Tie Sawyer Name Role Phone Lisa HOPPER, Stacie Sifuentes Primary Care Provider Un available Black, Alma Unavailable [phone] Allergies Allergen (clinical drug ingredient) Drug/Non Drug [...] Status Risk Notes Problem Acquired hallux valgus (38526144) Hallux valgus (acquired), left foot (M20.12) Active confirmed Problem Localized, primary osteoarthritis of the ankle and/or foot (609445001) Primary osteoarthritis, right ankle and foot (M19.071) Active confirmed Problem Acquired hallux valgus (85031823) Hallux valgus (acquired), right foot (M20.11) Active confirmed Problem Acquired hammer toe of right foot (8084475092470315) Other hammer toe(s) (acquired), right foot (M20.41) Active confirmed Problem Acquired hammer toe of left foot (9860891507744092) Other hammer toe(s) (acquired), left foot (M20.42) Active confirmed Problem Joint contracture of the ankle and/or foot (733942541) Flexion contracture of joint of right foot (M24.574) Active confirmed Problem Joint contracture of the ankle and/or foot (829578336) Flexion contracture of joint of left foot (M24.575) Active confirmed Problem Interstitial myositis (48431389) 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 confirmed Vital Signs Height 5ft 5in in 12/20/2023 Weight 190 lbs 12/20/2023 BMI 31.61 kg/m2 12/20/2023 Encounters Encounter Location Date Provider [facility] [address] [place] [address] 12/20/2023 Alma Black Pain in left foot M79.672 ; Plantar fasciitis of left foot M72.2 ; Calcaneal spur, left foot M77.32 ; Interstitial myositis of left foot M60.172 and Bursitis of left foot M77.[address] [facility] [address] 08/30/2023 Alma Black Assessments Encounter Date Diagnosis (ICD Code) Assessment [...] Treatment Pending Test Test Name Order Date [id number] NAIL, 1-5 08/02/2019 04679- Debride <25 sq cm 08/18/2019 23609 I&D ABSCESS- SIMPLE,SINGLE 020 21969,[id number] TENDON SHEATH/LIGAMENT 1 32668,[id number] TENDON SHEATH/LIGAMENT 0 05/06/2016 86583,[id number] TENDON SHEATH/LIGAMENT 0 06/15/2016 67541- Ganglion Cyst Injection/Aspiratio n 10/25/201873909- Ganglion Cyst Injection/Aspiratio n 12/27/2018 80817 - Tenotomy, open flexor 09/12/2019 Insurance Providers Payer Name Payer Address Payer Phone Subscriber Number Group Number Insured Name Patient Relationship to Insured Coverage Start Date Coverage End Date Blue[employer] 65 Medicare Preferred [address] [place] [address] [id number] Jimena Boyd Self - patient is the insured Medical (General) History Medical History History ICD Code Arthritis Back,Hip,and Knee pain Stomach ulcer Warts Measles Mumps covid-19 Depression Reflux ( GERD) Surgical History Surgery Date(Month/Year) section 08/1981 bladder lift 07/2022 knee surgery, right - torn meniscus 11/11
--- OUTSIDE RECORDS SUMMARY | 2024-07-19 10:43 | XMS_ITS ---
Author Organization [facility] Address [address] [place] [address] Care Team Providers Care Fire Chief Deputy Name Role Phone Lisa HOPPER, Stacie Sifuentes Primary Care Provider Un available Alma Valadez [phone] Encounters Encounter Location Date Provider Diagnosis [facility] [address] [place] [address] 07/26/2023 Alma Black Plan Of Treatment No Information Progress Notes * SCARLETTJimena MCKEON JDOB:[birth year] (69 yo F)Acc No.[id number]:07/26/2023 Progress Notes Patient:?Jimena BOYD Provider:?Alma Valadez DPM :1955???Age:68 Y???Sex:Female D ate:07/26/2023 Address:[facility] [address] [place] Pcp:León Auguste Subjective: * Chief Complaints: * [...]
== END 2024-07-19 09:46 | disposition home or self-care (01) ==
LOC: HO.RESP 09:45
PROVIDERS: PCP Internal Medicine; Visit Provider Internal Medicine
DX: R06.09 Other forms of dyspnea (principal)
CPT/HCPCS: 94010; 94640; 94727; 94729

== ENCOUNTER → 2024-07-19 09:51 | Outpatient (BNV) | payer MEDICARE, SELFPAY | PROVIDERS: PCP Internal Medicine; Visit Provider Internal Medicine Pulmonary Disease | DX: R06.09 Other forms of dyspnea (principal) | CPT/HCPCS: 94060; 94727; 94729 ==

== ENCOUNTER 2024-11-09 15:54 | Outpatient (AMB) | payer BC, SELFPAY ==
--- OUTSIDE RECORDS SUMMARY | 2024-11-09 15:56 | XMS_ITS | Patient Health Record ---
Author Organization [facility] Address [address] [place] [address] Care Team Providers Care Corrugator Machine Operator Name Role Phone Lisa HOPPER, Stacie Primary Care Provider Joshua Walker [phone] Allergies Allergen (clinical drug ingredient) Drug/Non Drug Allergy documented on EMR Reaction Allergy Type Onset Date Status Codeine Phosphate Unknown Drug Allergy Active Reason For Referral No Information Medications Medication SIG (Take, Route, Fr equency, Duration) Notes Start Date End Date Status Vitamin B Complex Ac tive Fish Oil Active Omeprazole 40 MG Orally Act durga Lorazepam as needed Active Omeprazole 20 MG TAKE 1 CAPSULE BY [facility] DAILY for 30 Active Probiotic Active Green Tea Active Multivitamin Active Vitamin C Active Vitamin D Not-Taking Problems Problem Type SNOMED Code ICD Code Onset Dates Problem Status W/U Status Risk Notes Problem 746270734 Gastroesophageal reflux disease, esophagitis presence not specified (K21.9) Active confirmed Problem 83567219 Heme + stool (R19.5) Active confirmed Problem 50994914 Hiatal hernia (K44.9) Active confirmed Problem 70827062 Erosive esophagi tis (K22.10) Active confirmed Plan Of Treatment Future Test Test Name Order Date UPPER GI ENDOSCOPY 05/05/2016 COLONOSCOPY 05/05/2016 UPPER GI ENDOSCOPY 12/01/2016 Insurance Providers Payer Name Payer Address Payer Phone Subscriber Number Group Number Insured Name Patient Relationship to Insured Coverage Start Date Coverage End Date [facility] [employer] [address] [place] [address] [id number] JERZYK, JANET Self - patient is the insured Medical (General) History Medical History History ICD Code Screening colonoscopy 010--negative except for diverticulsosis and internal hemorrhoids History of irritable bowel syndrome--con stipation Denies GA,DM,CVA,Lung disease,renal dise ase Lactose intolerance GERD--EGD 07/2016--moderate-sized HH, ero sive esophagitis--no Trinidad's Colonoscopy 07/2016--negative except for diverticulosis and internal hemorrhoids Surgical History Surgery Date(Month/Year) Plantars wart Oral surgery
--- NOTE | 2024-11-09 16:00 | A.OFFPC_ITS ---
Vital Signs 11/09/24 16:01 Height 5 ft 5 in Weight 192 lb BMI 31.9 BP 150/80 H Blood Pressure Location Lt brachial Position Sitting Pulse 82 Pulse Source Pulse Oximeter Pulse Oximetry (%) 97 Oxygen Delivery Method Room Air Intake Visit Reasons: 6m f/u Nut Sorter Required: No Allergies codeine (CODEINE) Allergy (Severe, Verified 11/12/24 17:30) DIFFICULTY BREATHING Medication List - Last Reconciled 11/12/24 by Stacie Gonzalez MD Bacillus coagulans (Digestive Advantage Probiotics-Prebiotic) cells PO bupropion HCl XL 150 mg PO QAM diclofenac sodium 1% 2 grams topical QID PRN estradiol 0.01%(0.1mg/gram) vaginal famotidine 40 mg PO BEDTIME loratadine 10 mg PO DAILY lorazepam 0.5 mg PO DAILY PRN magnesium oxide 400 mg PO DAILY multivitamin 1 tab PO DAILY omeprazole 20 mg PO DAILY tretinoin 0.025% appl topical turmeric root extract 500 mg PO DAILY vitamin B complex 1 tab PO DAILY Tobacco use date assessed: 05/10/24 Fall risk assessment: No Falls in past year Last assessed Fall Risk: 11/09/24 Dental Screening Dental Screen Date: 05/10/24 HPI 6m f/u HPI Details 69-year-old lady with history of hyperli pidemia , impaired fasting glucose, depression, here today for follow-up. She has been compliant with taking her medications, stays active, travels a lot. The pulmonary function test done which came back with unremarkable findings. Blood pressure elevated on this visit, denies any accompanying headache, no shortness of breath or lightheadedness, no nausea. Gets occasional pain and stiffness in her fingers of both hands COUNTS INCLUDE [facility] BEDS AT [facility] Medical History (Updated 11/09/24 @ 16:57 by Stacie Gonzalez MD) Chronic GERD Tinnitus Impaired fasting glucose POP-Q stage 2 cystocele Dyslipidemia Osteoarthritis of fingers of both hands Depression Plantar wart Surgical History Status post lateral meniscal repair H/O colonoscopy H/O: Family History Father No problems noted. Mother Substance use disorder Mental health disorder Social History Housing: House Alcohol intake: current Patient Tobacco Use Status: Former Tobacco user Years Smoked: 10 yrs e-Cigarette/Vaping Use: Never Used Second Hand Smoke Exposure: No service: No Current occupational status: retired Current occupational exposures/hazards: No Cognitive needs: No Hearing needs: No Vision needs: Yes (reading glasses) Questionnaire Thrive Questionnaire Date Thrive assessed: 05/03/24 I am a: Patient What is your living situation today?: I have a steady place to live Within the past 12 months, did the food you bought not last and you didn't have the money to get more?: Never true Within the past 12 months, did you worry whether your food would run out before you got money to buy more?: Never true Do you have trouble paying for medicines?: No Do you have trouble getting transportation to medical appointments?: No Do you have trouble paying your heating and electricity bill?: No Do you have trouble taking care of your child, family member or friend?: No Do you have trouble with day-to-day activities such as bathing, preparing meals, shopping, managing finances, etc.?: No Are you currently unemployed and looking for a job?: No Are you interested in more education?: No Please select the resources that you would like help with: None Currently or been in a relationship where the following occur: No concerns reported THRIVE Score: 0 OPAL-7 AMB Questionnaire OPAL-7 Date OPAL - 7 assessed: 05/10/24 Source: Developed by Drs. Joshua Tovar, Demi Tariq, Bryant Ruvalcaba and colleagues, with an educational monico from [employer]. Review of Systems Const Denies fever(s) Eyes Denies change in vision ENT Reports no additional complaints Card Denies chest pain, Denies irregular heart rhythm, Denies lightheadedness and Denies dyspnea Resp Denies cough and Denies dyspnea GI Denies melena, Denies bloating, Denies hematochezia, Denies change in bowel habits and Reports heartburn (Has a take omeprazole every day to control symptoms) Reports no additional complaints, Denies genital pruritis, Denies dyspareunia and Denies urinary incontinence Musc Details: Occasional pain and stiffness in fingers of both hands Denies myalgias Skin/Breast Denies breast pain, Denies breast mass, Denies lesions and Denies rash Neuro Reports no additional complaints Psych Reports no additional complaints Endo Reports no additional complaints Ashu/Lymph Reports no additional complaints Aller/Immun Reports no additional complaints Physical exam (Primary Care) Vital Signs: Last Vital Signs Pulse 82 11/09/24 16:01 BP 135/80 11/09/24 16:01 Pulse Ox 97 11/09/24 16:01 Oxygen Delivery Method Room Air 11/09/24 16:01 BMI result Body Mass Index 31.9 Tobacco/Smoking Status: Tobacco use Status Tobacco use date assessed 05/10/24 11/09/24 16:04 Patient Tobacco Use Status Former Tobacco user 11/09/24 16:04 e-Cigarette/Vaping Use Never Used 11/09/24 16:04 Thrive Assessment: Date of Thrive Assessment Date Thrive assessed 05/03/24 11/09/24 16:04 Currently or been in a relationship where the following occur: No concerns reported Const General: comfortable, no acute distress and alert Orientation/consciousness: patient oriented x3 HENMT Ears: external ears normal, TM's normal bilaterally and EAC's normal General nose exam: Normal external nose present Mouth: Normal oral and palatal mucosa present, oropharynx normal and moist mucous membranes Eyes General: appearance normal, both eyes and all related structures Neck Neck: Yes full ROM, Yes no lymphadenopathy and Yes supple Resp Effort & Inspection: normal respiratory effort and able to speak in complete sentences Auscultation: clear to auscultation bilaterally Cardio Rate: regular rate Rhythm: regular rhythm Heart sounds: S1 normal heart sound present and S2 normal heart sound present GI Palpation (GI): Soft to palpation, nontender and no masses Auscultation: normal bowel sounds Neuro General: patient oriented x3, gait normal, tone normal, moves all extremities, Normal light touch and pain sensation and no focal motor deficits Cranial nerves: Yes CN's II-XII intact bilaterally Cognition (Neuro): normal cognition Extrem General: Yes full ROM, Yes no joint enlargement, Yes no clubbing, cyanosis or edema and Yes no calf tenderness Psych Appearance: grossly normal and well kempt Mental Status: mental status grossly normal Speech and movement: Normal speech and movement present Affect: normal affect Attitude: cooperative Coding Level of Care Code Est Pt Level 4 (27147) Diagnoses Dyslipidemia E78.5 Impaired fasting glucose R73.01 Osteoarthritis of fingers of both hands M19.041; M19.042 Recurrent major depressive disorder, in partial remission F33.41 Active/Remission status: in partial remission Depression Type: major depressive disorder Major depression recurrence: recurrent Chronic GERD K21.9 Assessment & Plan Assessment & Plan (1) Dyslipidemia: Code(s): E78.5 - Hyperlipidemia, unspecified Category: Medical Plan: Fasting lipid panel ordered continue with adhering to healthy eating habits and getting regular exercise at least 150 minutes of moderate intensity exercise in a week. (2) Impaired fasting glucose: Code(s): R73.01 - Impaired fasting glucose Category: Medical Plan: Hemoglobin A1c and fasting blood sugar level ordered (3) Osteoarthritis of fingers of both hands: Code(s): M19.041 - Primary osteoarthritis, right hand; M19.042 - Primary osteoarthritis, left hand Category: Medical Plan: Take Tylenol arthritis tablet 1 every 12 hours as needed, continue taking turmeric supplements, followed directions on bottle (4) Depression: Code(s): F32.9 - Major depressive disorder, single episode, unspecified Category: Medical Qualifiers: Active/Remission status: in partial remission Depression Type: major depressive disorder Major depression recurrence: recurrent Qualified Code(s): F33.41 - Major depressive disorder, recurrent, in partial remission Plan: Currently on bupropion HCL 150 mg taken 1 tablet in the morning, lorazepam prescription refill (5) Chronic GERD: Code(s): K21.9 - Gastro-esophageal reflux disease without esophagitis Category: Medical Plan: Currently on omeprazole 20 mg daily, advised to try switching to famotidine 40 mg per tablet take at bedtime. referred to GI Clinic for further evaluation Orders: Orders Lipid Panel 11/09/24 E78.5 - Hyperlipidemia, unspecified, F33.41 - Major depressive disorder, recurrent, in partial remission, M19.041 - Primary osteoarthritis, right hand, M19.042 - Primary osteoarthritis, left hand, R73.01 - Impaired fasting glucose, Z13.220 - Encounter for screening for lipoid disorders Aspartate Amino Transferase 11/09/24 E78.5 - Hyperlipidemia, unspecified, F33. 41 - Major depressive disorder, recurrent, in partial remission, M19.041 - Primary osteoarthritis, right hand, M19.042 - Primary osteoarthritis, left hand, R73.01 - Impaired fasting glucose, Z13.220 - Encounter for screening for lipoid disorders Hemoglobin A1c 11/09/24 E78.5 - Hyperlipidemia, unspecified, F33.41 - Major depressive disorder, recurrent, in partial remission, M19.041 - Primary osteoarthritis, right hand, M19.042 - Primary osteoarthritis, left hand, R73.01 - Impaired fasting glucose, Z13.220 - Encounter for screening for lipoid disorders Magnesium 11/09/24 E78.5 - Hyperlipidemia, unspecified, F33.41 - Major depressive disorder, recurrent, in partial remission, M19.041 - Primary osteoarthritis, right hand, M19.042 - Primary osteoarthritis, left hand, R73.01 - Impaired fasting glucose, Z13.220 - Encounter for screening for lipoid disorders Basic Metabolic Panel Fasting 11/09/24 E78.5 - Hyperlipidemia, unspecified, F33.41 - Major depressive disorder, recurrent, in partial remission, M19.041 - Primary osteoarthritis, right hand, M19.042 - Primary osteoarthritis, left hand, R73.01 - Impaired fasting glucose, Z13.220 - Encounter for screening for lipoid disorders XR DEXA axial skeleton 11/09/24 Z78.0 - Asymptomatic menopausal state Alanine Aminotransferase 11/09/24 E78.5 - Hyperlipidemia, unspecified, F33.41 - Major depressive disorder, recurrent, in partial remission, M19.041 - Primary osteoarthritis, right hand, M19.042 - Primary osteoarthritis, left hand, R73.01 - Impaired fasting glucose, Z13.220 - Encounter for screening for lipoid disorders Vitamin D 25-OH Total 11/09/24 E78.5 - Hyperlipidemia, unspecified, F33.41 - Major depressive disorder, recurrent, in partial remission, M19.041 - Primary osteoarthritis, right hand, M19.042 - Primary osteoarthritis, left hand, R73.01 - Impaired fasting glucose, Z13.220 - Encounter for screening for lipoid disorders Referrals Gastroenterology Referral K21.9 - Gastro-esophageal reflux disease without esophagitis Medications: New famotidine 40 mg PO BEDTIME 30 tabs 1RF Refilled lorazepam 0.5 mg PO DAILY PRN 20 tabs 0RF anxiety
[2024-11-09 16:01] VITALS: BP 150/80; PULSE 82; O2SAT 97; BMI 31.9
== END 2024-11-09 17:05 | disposition home or self-care (01) ==
LOC: HO.HMCC 15:54
PROVIDERS: PCP Internal Medicine; Visit Provider Internal Medicine
DX: E78.5 Hyperlipidemia, unspecified (principal); R73.01 Impaired fasting glucose; M19.041 Primary osteoarthritis, right hand; M19.042 Primary osteoarthritis, left hand; F33.41 Major depressive disorder, recurrent, in partial remission; K21.9 Gastro-esophageal reflux disease without esophagitis

== ENCOUNTER 2024-11-15 07:37 | Outpatient (REF) | payer BC, SELFPAY ==
--- OUTSIDE RECORDS SUMMARY | 2024-11-15 07:40 | XMS_ITS | Patient Health Record ---
Author Organization [facility] Address [address] [place] [address] Care Team Providers Care Plumbing And Heating Contractor Name Role Phone Lisa HOPPER, Stacie Primary Care Provider Joshua Walker [phone] Allergies Allergen (clinical drug ingredient) Drug/Non Drug [...] Omeprazole 20 MG TAKE 1 CAPSULE BY [facility] DAILY for 30 Active Probiotic Active Green Tea Active Multivitamin Active Vitamin C Active Vitamin D Not-Taking Problems Problem Type SNOMED Code ICD Code Onset Dates Problem Status W/U Status Risk Notes Problem 850674429 Gastroesophageal reflux disease, esophagitis presence not specified (K21.9) Active confirmed Problem 69490172 Heme + stool (R19.5) Active confirmed Problem 26184398 Hiatal hernia (K44.9) Active confirmed Problem 73700580 Erosive esophagi tis (K22.10) Active confirmed Plan Of Treatment Future Test Test Name Order Date UPPER GI ENDOSCOPY 05/05/2016 COLONOSCOPY 05/05/2016 UPPER GI ENDOSCOPY 12/01/2016 Next Appt Details Provider Name:Joshua Traore Clau , 03/29/2025 10:00:00 AM, [address], [address], [place], [address], Insurance Providers Payer Name Payer Address Payer Phone Subscriber Number Group Number Insured Name Patient Relationship to Insured Coverage Start Date Coverage End Date [facility] [address] [place] [address] [id number] JANET LEVY Self - patient is the insured Medical (General) History Medical History History ICD Code Screening colonoscopy 010--negative except for diverticulsosis and internal hemorrhoids History of irritable bowel syndrome--con stipation Denies MO,DM,CVA,Lung disease,renal dise ase Lactose intolerance GERD--EGD 07/2016--moderate-sized HH, ero sive esophagitis--no Trinidad's Colonoscopy 07/2016--negative except for diverticulosis and internal hemorrhoids Surgical History Surgery Date(Month/Year) Plantars wart Oral surgery
--- OUTSIDE RECORDS SUMMARY | 2024-11-15 07:40 | XMS_ITS | Patient Health Record ---
[facility] Address [address] [facility] [address] Care Team Providers Care Pearl Restorer Name Role Phone Lisa HOPPER, Stacie Sifuentes Primary Care Provider Un available Black, Alma Unavailable [phone] Allergies Allergen (clinical drug ingredient) Drug/Non Drug [...] Splint AFO - L1930 1 wear at rest; Duration: 30 days Active Omeprazole 20 MG 1 capsule 30 minutes before morning meal Orally Once a day Not-Taking Physical Therapy . . . 2-3x/week; Duration: 3-4 weeks 06/25/2023 Not-Taking Omeprazole 20 MG 1 capsule Orally Onc e a day Active predniSONE 10 MG 1 tablet Orally Once a day; Duration: 30 day(s) Not-Taking buPROPion HCl Active Loratadine OTC, daily Active Physical Therapy . . . 2-3x/week; Duration: 3-4 weeks 03/11/2016 Not-Taking Physical Therapy 3-4x per [...] Status Risk Notes Problem Acquired hallux valgus (34070050) Hallux valgus (acquired), left foot (M20.12) Active confirmed Problem Localized, primary osteoarthritis of the ankle and/or foot (881496767) Primary osteoarthritis, right ankle and foot (M19.071) Active confirmed Problem Acquired hallux valgus (95471301) Hallux valgus (acquired), right foot (M20.11) Active confirmed Problem Acquired hammer toe of right foot (8729878007490159) Other hammer toe(s) (acquired), right foot (M20.41) Active confirmed Problem Acquired hammer toe of left foot (1708918346968255) Other hammer toe(s) (acquired), left foot (M20.42) Active confirmed Problem Flexion contracture of joint of right foot (M24.574) Active confirmed Problem Flexion contracture of joint of left foot (M24.575) Active confirmed Problem Interstitial myositis (13021869) 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 confirmed Vital Signs Height 5ft 5in in 12/20/2023 Weight 190 lbs 12/20/2023 BMI 31.61 kg/m2 12/20/2023 Encounters Encounter Location Date Provider Diagnosis [facility] [address] [place] [address] 12/20/2023 Alma Black Pain in left foot [...] Treatment Pending Test Test Name Order Date [id number] NAIL, 1-5 08/02/2019 16067- Debride <25 sq cm 08/18/2019 34836 I&D ABSCESS- SIMPLE,SINGLE 020 95261,[id number] TENDON SHEATH/LIGAMENT 1 65505,[id number] TENDON SHEATH/LIGAMENT 0 05/06/201624818,[id number]-XKG TENDON SHEATH/LIGAMENT 0 06/15/201670656- Ganglion Cyst Injection/Aspiratio n 10/25/2018- Ganglion Cyst Injection/Aspiratio n 12/27/2018 83928 - Tenotomy, open flexor 09/12/2019 Insurance Providers Payer Name Payer Address Payer Phone Subscriber Number Group Number Insured Name Patient Relationship to Insured Coverage Start Date Coverage End Date BlueCare 65 Medicare Preferred [address] [place] [address] [id number] Jimena Boyd Self - patient is the insured Medical (General) History Medical History History ICD Code Arthritis Back,Hip,and Knee pain Stomach ulcer Warts Measles Mumps covid-19 Depression Reflux ( GERD) Surgical History Surgery Date(Month/Year) section 08/1981 bladder lift 07/2022 knee surgery, right - torn meniscus 11/11
[2024-11-15 11:34] LABS: Hemoglobin A1C 147.3556 umol/L; Total Hemoglobin (HGBA1C) 3786.5238 umol/L
[2024-11-15 12:01] LABS: Alanine Aminotransferase 29 U/L (0-31); Anion Gap 11 (12-20); Aspartate Amino Transferase 30 U/L (5-31); Blood Urea Nitrogen 14 mg/dL (9-16); Calcium 9.5 mg/dL (8.4-10.2); Carbon Dioxide 28 mmol/L (22-29); Chloride 107 mmol/L (96-108); Cholesterol 210 mg/dL (<200); Estimated Glomerular Filt Rate > 60; HDL Cholesterol 56 mg/dL (>40); Magnesium 2.0 mg/dL (1.6-2.6); Potassium 4.2 mmol/L (3.3-5.1); Sodium 142 mmol/L (135-145); Triglycerides 115 mg/dL (<150)
== END 2024-11-15 07:38 | disposition home or self-care (01) ==
LOC: HO.HMGCLDS 07:37
PROVIDERS: PCP Internal Medicine; Visit Provider Internal Medicine
DX: M19.041 Primary osteoarthritis, right hand (principal); M19.042 Primary osteoarthritis, left hand; F33.41 Major depressive disorder, recurrent, in partial remission; E78.5 Hyperlipidemia, unspecified; R73.01 Impaired fasting glucose; Z13.220 Encounter for screening for lipoid disorders
CPT/HCPCS: 36415; 80048; 80061; 82306; 83036; 83735; 84450; 84460

== ENCOUNTER → 2024-12-14 09:35 | Outpatient (BNVA) | payer MEDICARE, SELFPAY | PROVIDERS: PCP Internal Medicine | DX: Z01.30 Encounter for examination of blood pressure without abnormal findings (principal) | CPT/HCPCS: 99211 ==

== ENCOUNTER 2024-12-27 09:51 | Outpatient (REF) | payer MEDICARE, SELFPAY ==
--- OUTSIDE RECORDS SUMMARY | 2023-07-26 06:15 | XMS_ITS ---
Author Organization [facility] Address [address] [place] [address] Care Team Providers Care Tie Binder Name Role Phone Lisa HOPPER, Stacie Sifuentes Primary Care Provider Un available Black, [place] Unavailable [phone] Encounters Encounter Location Date Provider Diagnosis [facility] [address] [place] [address] 07/26/2023 Alma Black Plan Of Treatment No Information Progress Notes * CAMJimena JDOB:[birth year] (69 yo F)Acc No.[id number]:07/26/2023 Progress Notes Patient: Jimena RICHARDSON Provider: Dk Valadez DPM :1955 A ge:68 Y S ex:Female Date:07/26/2023 Address:[address], [facility] Pcp:León Auguste Subjective: * Chief Complaints: * [...] 07/26/2023 Generated for Printi ng/Faxing/eTransmitting on: 0 12/27/2024 11:41 AM EDT
--- NOTE | 2024-12-27 09:54 | PFT_ITS ---
Methacholine bronchial challenge: Patient had greater than 20% decrease in FEV1 with sequential methacholine administration. Impression: Positive methacholine challenge consistent with underlying asthma. MTDD
[2024-12-27 11:35] VITALS: PULSE 75; O2SAT 95
--- OUTSIDE RECORDS SUMMARY | 2024-12-27 11:42 | XMS_ITS | Patient Health Record ---
Author Organization [facility] Address [address] [place] [address] Care Team Providers Care Recreational Programs Director Name Role Phone Lisa HOPPER, Stacie Primary Care Provider Joshua Walker [phone] Allergies Allergen (clinical drug ingredient) Drug/Non Drug [...] Problem Status W/U Status Risk Notes Problem 226416319 Gastroesophageal reflux disease, esophagitis presence not specified (K21.9) Active confirmed Problem 54448667 Heme + stool (R19.5) Active confirmed Problem 63023996 Hiatal hernia (K44.9) Active confirmed Problem 81949664 Erosive esophagi tis (K22.10) Active confirmed Plan Of Treatment Future Test Test Name Order Date UPPER GI ENDOSCOPY 05/05/2016 COLONOSCOPY 05/05/2016 UPPER GI ENDOSCOPY 12/01/2016 Next Appt Details Provider Name:Joshua Traore Clau , 03/29/2025 10:00:00 AM, [address], [address], [place], [address], Insurance Providers Payer Name Payer Address Payer Phone Subscriber Number Group Number Insured Name Patient Relationship to Insured Coverage Start Date Coverage End Date [facility] [address] [place] [address] [id number] JANET LEVY Self - patient is the insured Medical (General) History Medical History History ICD Code Screening colonoscopy 010--negative except for diverticulsosis and internal hemorrhoids History of irritable bowel syndrome--con stipation Denies NV,DM,CVA,Lung disease,renal dise ase Lactose intolerance GERD--EGD 07/2016--moderate-sized HH, ero sive esophagitis--no Trinidad's Colonoscopy 07/2016--negative except for diverticulosis and internal hemorrhoids Surgical History Surgery Date(Month/Year) Plantars wart Oral surgery
--- OUTSIDE RECORDS SUMMARY | 2024-12-27 11:42 | XMS_ITS | Patient Health Record ---
[facility] Address [address] [facility] [place] [address] Care Team Providers Care Mandarin Teacher Name Role Phone Lisa HOPPER, Stacie Sifuentes Primary Care Provider Un available Black, [place] Unavailable [phone] Allergies Allergen (clinical drug ingredient) Drug/Non Drug [...] Status Risk Notes Problem Acquired hallux valgus (18496701) Hallux valgus (acquired), left foot (M20.12) Active confirmed Problem Localized, primary osteoarthritis of the ankle and/or foot (913669441) Primary osteoarthritis, right ankle and foot (M19.071) Active confirmed Problem Acquired hallux valgus (58558315) Hallux valgus (acquired), right foot (M20.11) Active confirmed Problem Acquired hammer toe of right foot (2477535188736768) Other hammer toe(s) (acquired), right foot (M20.41) Active confirmed Problem Acquired hammer toe of left foot (6348727509947783) Other hammer toe(s) (acquired), left foot (M20.42) Active confirmed Problem Flexion contracture of joint of right foot (M24.574) Active confirmed Problem Flexion contracture of joint of left foot (M24.575) Active confirmed Problem Interstitial myositis (46243838) 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 confirmed Plan Of Treatment Pending Test Test Name Order Date [id number] NAIL, 1-5 08/02/2019 05035- Debride <25 sq cm 08/18/2019 99526 I&D ABSCESS- SIMPLE,SINGLE 020 86919,[id number] TENDON SHEATH/LIGAMENT 1 50,[id number]-MNP TENDON SHEATH/LIGAMENT 0 05/06/2016 86678,[id number] TENDON SHEATH/LIGAMENT 0 06/15/2016- Ganglion Cyst Injection/Aspiratio n 10/25/2018- Ganglion Cyst Injection/Aspiratio n 12/27/2018 26355 - Tenotomy, open flexor 09/12/2019 Insurance Providers Payer Name Payer Address Payer Phone Subscriber Number Group Number Insured Name Patient Relationship to Insured Coverage Start Date Coverage End Date BlueCare 65 Medicare Preferred [address] [place] [address] [id number] Jimena Boyd Self - patient is the insured Medical (General) History Medical History History ICD Code Arthritis Back,Hip,and Knee pain Stomach ulcer Warts Measles Mumps covid-19 Depression Reflux ( GERD) Surgical History Surgery Date(Month/Year) section 08/1981 bladder lift 07/2022 knee surgery, right - torn meniscus 11/11
== END 2024-12-27 09:52 | disposition home or self-care (01) ==
LOC: HO.RESP 09:51
PROVIDERS: PCP Internal Medicine; Visit Provider Internal Medicine
DX: R06.09 Other forms of dyspnea (principal)
CPT/HCPCS: 94070; 94640

== ENCOUNTER → 2024-12-28 09:50 | Outpatient (BNVA) | payer MEDICARE, SELFPAY | PROVIDERS: PCP Internal Medicine | DX: Z01.30 Encounter for examination of blood pressure without abnormal findings (principal) | CPT/HCPCS: 99211 ==

== ENCOUNTER 2025-01-05 07:59 | Outpatient (AMB) | payer MEDICARE, SELFPAY ==
--- OUTSIDE RECORDS SUMMARY | 2023-07-26 06:15 | XMS_ITS ---
Author Organization [facility] Address [address] [place] [address] Care Team Providers Care Ornamental Plaster Sticker Name Role Phone Lisa HOPPER, Stacie Sifuentes Primary Care Provider Un available Black, [place] Unavailable [phone] Encounters Encounter Location Date Provider Diagnosis [facility] [address] [place] [address] 07/26/2023 Alma Black Plan Of Treatment No Information Progress Notes * CAMJimena JDOB:[birth year] (69 yo F)Acc No.[id number]:07/26/2023 Progress Notes Patient: Jimena RICHARDSON Provider: Dk Valadez DPM :1955 A ge:68 Y S ex:Female Date:07/26/2023 Address:[address], [facility] Pcp:León Auguste Subjective: * Chief Complaints: * * Medical History: Objective: * Vitals: Assessment: Plan: * Treatment: * Images: * The named appointment provid er may or may not be the originator of this progress note, and it is not deemed complete until electronically signed by the appointment provider. Sign off status: Pending * Provider: Dk Valadez DPM Date: 0 07/26/2023 Generated for Printi ng/Faxing/eTransmitting on: 0 01/05/2025 08:01 AM EDT
--- NOTE | 2025-01-05 07:55 | A.OFFPC_ITS ---
Intake Visit Reasons: PFT results I phone Sand Cutting Machine Operator Required: No Allergies codeine (CODEINE) Allergy (Severe, Verified 01/06/25 01:23) DIFFICULTY BREATHING Medication List - Last Reconciled 01/06/25 by Stacie Gonzalez MD albuterol sulfate 90 mcg/actuation (Ventolin HFA) 2 puffs inhalation Q6H PRN Bacillus coagulans (Digestive Advantage Probiotics-Prebiotic) cells PO bupropion HCl XL 150 mg PO QAM diclofenac sodium 1% 2 grams topical QID PRN estradiol 0.01%(0.1mg/gram) vaginal famotidine 40 mg PO BEDTIME loratadine 10 mg PO DAILY lorazepam 0.5 mg PO DAILY PRN losartan 100 mg PO DAILY multivitamin 1 tab PO DAILY omeprazole 20 mg PO DAILY tretinoin 0.025% appl topical turmeric root extract 500 mg PO DAILY vitamin B complex 1 tab PO DAILY Tobacco use date assessed: 01/05/25 Fall risk assessment: No Falls in past year Last assessed Fall Risk: 01/05/25 Dental Screening Dental Screen Date: 01/05/25 Did you have a dental visit in the last 12 months?: Yes Did you have a dental problem in the last 6 months where you did not have access to dental care?: No Was dental information given to patient?: Patient has dentist HPI PFT results I phone HPI Details 69-year-old lady here today for follow-u p on results of her pulmonary function test with methacholine challenge. She has been complaining of shortness of breath worse on exertion especially when walking on an incline. She would usually be out of breath when she gets on the top and has to rest for several minutes to be able to catch her breath. Denies any accompanying chest pain, headache, or lightheadedness. Her pulmonary function test with methacholine challenge came back positive with results consistent with underlying asthma. [facility] Medical History (Updated 01/06/25 @ 01:26 by Stacie Gonzalez MD) Mild intermittent asthma Essential hypertension Chronic GERD Tinnitus Impaired fasting glucose POP-Q stage 2 cystocele Dyslipidemia Osteoarthritis of fingers of both hands Depression Plantar wart Surgical History Status post lateral meniscal repair H/O colonoscopy H/O: Family History (Reviewed 01/06/25 @ 01: by Stacie Gonzalez MD) Father No problems noted. Mother Substance use disorder Mental health disorder Social History (Reviewed 01/06/25 @ : by Stacie Gonzalez MD) Housing: House Alcohol intake: current Patient Tobacco Use Status: Former Tobacco user Years Smoked: 10 yrs e-Cigarette/Vaping Use: Never Used Second Hand Smoke Exposure: No service: No Current occupational status: retired Current occupational exposures/hazards: No Cognitive needs: No Hearing needs: No Vision needs: Yes (reading glasses) Questionnaire PHQ-9 Over the last 2 weeks, how often have you been bothered by any of the following problems? 1. Little interest or pleasure in doing things: not at all 2. Feeling down, depressed, or hopeless: not at all 3. Trouble falling or staying asleep, or sleeping too much: several days 4. Feeling tired or having little energy: several days 5. Poor appetite or overeating: several days 6. Feeling bad about yourself - or that you are a failure or have let yourself or your family down: several days 7. Trouble concentrating on things, such as reading the newspaper or watching television: several days 8. Moving or speaking so slowly that other people could have noticed. Or the opposite - being so fidgety or restless that you have been moving around a lot more than usual: not at all 9. Thoughts that you would be better off or of hurting yourself in some way: not at all Total score: 5 Source: Developed by Drs. Joshua Tovar, Demi Tariq, Bryant Ruvalcaba and colleagues, with an educational monico from [employer]. Thrive Questionnaire Date Thrive assessed: 01/05/25 I am a: Patient What is your living situation today?: I have a steady place to live Within the past 12 months, did the food you bought not last and you didn't have the money to get more?: Never true Within the past 12 months, did you worry whether your food would run out before you got money to buy more?: Never true Do you have trouble paying for medicines?: No Do you have trouble getting transportation to medical appointments?: No Do you have trouble paying your heating and electricity bill?: No Do you have trouble taking care of your child, family member or friend?: No Do you have trouble with day-to-day activities such as bathing, preparing meals, shopping, managing finances, etc.?: No Are you currently unemployed and looking for a job?: No Are you interested in more education?: No Currently or been in a relationship where the following occur: No concerns reported THRIVE Score: 0 AUDIT C Alcohol Use Questionnaire (AUDIT-C) 1. How often do you have a drink containing alcohol?: 4 or more times a week 2. How many drinks containing alcohol do you have on a typical day when you are drinking?: 1 or 2 3. How often do you have six or more drinks on one occasion?: Never Total Score: 4 OPAL-7 AMB Questionnaire OPAL-7 Date OPAL - 7 assessed: 01/05/25 Feeling nervous, anxious, or on edge: 0 = Not at all Not being able to stop or control worryin = Not at all Worrying too much about different things: 0 = Not at all Trouble relaxin = Not at all Being so restless that it is hard to sit still: 0 = Not at all Becoming easily annoyed or irritable: 0 = Not at all Feeling afraid as if something awful might happen: 0 = Not at all Total OPAL-7 score (0-4 normal; 5-9 mild; 10-14 moderate; 15-21 severe): 0 Source: Developed by Drs. Joshua Tvoar, Demi Tariq, Bryant Ruvalcaba and colleagues, with an educational monico from [employer]. OPAL-7 Assessment Billing OPAL-7 Assessment Tool: OPAL-7 Assessment 65219 Review of Systems Const All systems reviewed & are unremarkable except as noted in HPI and below Physical exam (Primary Care) Tobacco/Smoking Status: Tobacco use Status Tobacco use date assessed 01/05/25 01/05/25 07:58 Patient Tobacco Use Status Former Tobacco user 01/05/25 07:58 e-Cigarette/Vaping Use Never Used 01/05/25 07:58 PHQ-9: PHQ-9 Score PHQ-9: Total score 5 01/05/25 21:55 Thrive Assessment: Date of Thrive Assessment Date Thrive assessed 01/05/25 01/05/25 07:58 Currently or been in a relationship where the following occur: No concerns reported Telehealth Telehealth Telehealth [facility] Location of provider rendering services: practice address Location of patient: address on file Patient Identification confirmed using: Name, : Yes Telehealth method: video Patient verbally consented to treatment: Yes Patient verbally consented to billing insurance company: Yes Patient informed of any privacy concerns related to visit: Yes Minutes spent on Phone/Video with Pt.: 15 Coding Level of Care Code Tele Est Pt Level 3 (91239) Diagnoses Mild intermittent asthma J45.20 Additional Codes OPAL-7 Assessment Billing - OPAL-7 Assessment Tool: OPAL-7 Assessment 11918 ([id number]) Assessment & Plan Assessment & Plan (1) Mild intermittent asthma: Code(s): J45.20 - Mild intermittent asthma, uncomplicated Category: Medical Plan: Prescription sent for albuterol inhaler, to take 2 1 or 2 inhalations every 6 hours as needed for episodes of bronchospasm, shortness of breath or wheezing. Patient instructed on proper use of the inhaler. Continue getting yearly flu vaccine, up-to-date with her pneumonia vaccine and COVID vaccine boots Medications: New albuterol sulfate 90 mcg/actuation (Ventolin HFA) 2 puffs inhalation Q6H PRN 8.5 grams 3RF shortness of breath or wheezing
--- OUTSIDE RECORDS SUMMARY | 2025-01-05 08:02 | XMS_ITS | Patient Health Record ---
Author [facility] Address [address] [facility] [place] [address] Care Team Providers Care Soils Analyst Name Role Phone Lisa HOPPER, Stacie Sifuentes Primary Care Provider Un available Black, [place] Unavailable [phone] Allergies Allergen (clinical drug ingredient) Drug/Non Drug [...] Status Risk Notes Problem Acquired hallux valgus (78501794) Hallux valgus (acquired), left foot (M20.12) Active confirmed Problem Localized, primary osteoarthritis of the ankle and/or foot (381969094) Primary osteoarthritis, right ankle and foot (M19.071) Active confirmed Problem Acquired hallux valgus (22481247) Hallux valgus (acquired), right foot (M20.11) Active confirmed Problem Acquired hammer toe of right foot (1807344643564139) Other hammer toe(s) (acquired), right foot (M20.41) Active confirmed Problem Acquired hammer toe of left foot (7754940965563186) Other hammer toe(s) (acquired), left foot (M20.42) Active confirmed Problem Flexion contracture of joint of right foot (M24.574) Active confirmed Problem Flexion contracture of joint of left foot (M24.575) Active confirmed Problem Interstitial myositis (76774892) 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 confirmed Plan Of Treatment Pending Test Test Name Order Date [id number] NAIL, 1-5 08/02/2019 13528- Debride <25 sq cm 08/18/2019 79391 I&D ABSCESS- SIMPLE,SINGLE 020 08634,[id number] TENDON SHEATH/LIGAMENT 1 50,[id number] TENDON SHEATH/LIGAMENT 0 05/06/2016 03688,[id number] TENDON SHEATH/LIGAMENT 0 06/15/2016- Ganglion Cyst Injection/Aspiratio n 10/25/2018- Ganglion Cyst Injection/Aspiratio n 12/27/2018 13533 - Tenotomy, open flexor 09/12/2019 Insurance Providers Payer Name Payer Address Payer Phone Subscriber Number Group Number Insured Name Patient Relationship to Insured Coverage Start Date Coverage End Date Blue[employer] 65 Medicare Preferred [address] [place] [address] [id number] Jimena Boyd Self - patient is the insured Medical (General) History Medical History History ICD Code Arthritis Back,Hip,and Knee pain Stomach ulcer Warts Measles Mumps covid-19 Depression Reflux ( GERD) Surgical History Surgery Date(Month/Year) section 08/1981 bladder lift 07/2022 knee surgery, right - torn meniscus 11/11
--- OUTSIDE RECORDS SUMMARY | 2025-01-05 08:02 | XMS_ITS | Patient Health Record ---
Author Organization [facility] Address [address] [place] [address] Care Team Providers Care Welt Stitch Cleaner Name Role Phone Lisa HOPPER, Stacie Primary Care Provider Joshua Walker [phone] Allergies Allergen (clinical drug ingredient) Drug/Non Drug [...] Problem Status W/U Status Risk Notes Problem 329229601 Gastroesophageal reflux disease, esophagitis presence not specified (K21.9) Active confirmed Problem 80928640 Heme + stool (R19.5) Active confirmed Problem 47144053 Hiatal hernia (K44.9) Active confirmed Problem 76797304 Erosive esophagi tis (K22.10) Active confirmed Plan Of Treatment Future Test Test Name Order Date UPPER GI ENDOSCOPY 05/05/2016 COLONOSCOPY 05/05/2016 UPPER GI ENDOSCOPY 12/01/2016 Next Appt Details Provider Name:Joshua Traore Clau , 03/29/2025 10:00:00 AM, [address], [address], [place], [address], Insurance Providers Payer Name Payer Address Payer Phone Subscriber Number Group Number Insured Name Patient Relationship to Insured Coverage Start Date Coverage End Date [facility] [address] [place] [address] [id number] JANET LEVY Self - patient is the insured Medical (General) History Medical History History ICD Code Screening colonoscopy 010--negative except for diverticulsosis and internal hemorrhoids History of irritable bowel syndrome--con stipation Denies [place],DM,CVA,Lung disease,renal dise ase Lactose intolerance GERD--EGD 07/2016--moderate-sized HH, ero sive esophagitis--no Trinidad's Colonoscopy 07/2016--negative except for diverticulosis and internal hemorrhoids Surgical History Surgery Date(Month/Year) Plantars wart Oral surgery
== END 2025-01-05 08:59 | disposition home or self-care (01) ==
LOC: HO.HMCC 07:59
PROVIDERS: PCP Internal Medicine; Visit Provider Internal Medicine
DX: J45.20 Mild intermittent asthma, uncomplicated (principal)

== ENCOUNTER → 2025-01-05 07:59 | Outpatient (BNVA) | payer MEDICARE, SELFPAY | PROVIDERS: PCP Internal Medicine; Visit Provider Internal Medicine | DX: J45.20 Mild intermittent asthma, uncomplicated (principal) | CPT/HCPCS: 96127 ==